=== PATIENT | female | born 1945 | race Caucasian/White ===

== ENCOUNTER 2021-12-07 15:11 | Outpatient (CLI) | payer MEDICARE | END 2021-12-07 15:12 | disposition home or self-care (01) | LOC: CSHRAD 15:11 | PROVIDERS: ATTEND Physician Assistant Medical | DX: R06.02 Shortness of breath (principal); K64.4 Residual hemorrhoidal skin tags; K74.60 Unspecified cirrhosis of liver | CPT/HCPCS: 71046 ==

== ENCOUNTER 2021-12-26 10:06 | Inpatient (IN) | payer MEDICARE ==
[2021-12-26 11:03] LABS: #Eosinphils 0.1 10x3/uL (0.0-0.5); #Monocytes 0.4 10x3/uL (0.0-1.1); #Neutrophils 3.6 10x3/uL (1.5-8.4); %Basophils 0.2 % (0.0-2.0); %Eosinophils 2.6 % (0.0-6.0); %Lymphocytes 11.4 % (18.0-47.0); %Monocytes 8.2 % (0.0-10.0); %Neutrophils 77.2 % (40.0-75.0); Hemoglobin 11.6 g/dL (12.0-15.5); Mean Corpuscular HGB CONC 32.8 g/dL (32.0-36.0); Mean Corpuscular Hemoglobin 29.1 pg (27.0-33.0); Mean Corpuscular Volume 88.7 fl (81.6-98.3); Mean Platelet Volume 12.9 fl (7.4-10.4); Platelet Count 64 10x3/uL (150-450); RBC Distribution Width 15.8 % (11.5-14.5); Red Blood Cell (RBC) Count 3.99 10x6/uL (3.90-5.03); White Blood Cell (WBC) Count 4.6 10x3/uL (3.5-10.5)
[2021-12-26 11:09] LABS: ALT (SGPT) 34 U/L (8-55); AST (SGOT) 38 U/L (5-34); Alkaline Phosphatase 107 U/L (40-110); Anion Gap 14 mmol/L (10-20); BUN (Urea Nitrogen) 34 mg/dL (9.8-20.1); Bilirubin, Total 1.4 mg/dL (0.2-1.2); Calc. Creatinine Clearance 0 mL/min (70-130); Calcium 8.6 mg/dL (7.8-10.44); Carbon Dioxide 25 mmol/L (23-31); Chloride 100 mmol/L (98-107); Estimated GFR 44; Globulin 4.2 g/dL (2.4-3.5); Glucose 193 mg/dL (83-110); Potassium 4.6 mmol/L (3.5-5.1); Protein, Total 7.2 g/dL (5.8-8.1); Sodium 134 mmol/L (136-145)
[2021-12-26] MEDS ORDERED: Ondansetron ODT 4 MG TAB PO PRN (12:52)
[2021-12-26] MEDS ORDERED: Ondansetron PF 4 MG/2 ML Vial IVP PRN (12:52)
[2021-12-26 13:38] VITALS: BMI 26.0
[2021-12-26 14:39] LABS: INR-International Normal Ratio 1.5; PTT 35.2 sec (22.0-33.0); Prothrombin Time 15.7 sec (9.5-12.1)
[2021-12-26] MEDS: Furosemide 40 MG/4 ML VIAL SLOW IVP SCH (14:47)
[2021-12-26] MEDS ORDERED: Benzonatate 100 MG CAP PO PRN (15:49)
[2021-12-26] MEDS: Ferrous Sulfate 325 MG TAB PO SCH (18:09)
[2021-12-26] MEDS: HYDROcodone/Acetaminophen 10/325 mg Tablet PO PRN ×2 (19:18→22:14)
[2021-12-26] MEDS: Zinc Sulfate 220 MG CAP PO SCH (22:14)
[2021-12-26] MEDS: Flecainide 50 MG TAB PO SCH (22:15)
[2021-12-27] MEDS: Levothyroxine Sodium 125 MCG TAB PO SCH (04:58)
[2021-12-27] MEDS: HYDROcodone/Acetaminophen 10/325 mg Tablet PO PRN ×3 (04:58→23:07)
[2021-12-27 05:10] LABS: #Eosinphils 0.1 10x3/uL (0.0-0.5); #Monocytes 0.4 10x3/uL (0.0-1.1); #Neutrophils 2.6 10x3/uL (1.5-8.4); %Basophils 0.3 % (0.0-2.0); %Eosinophils 2.3 % (0.0-6.0); %Lymphocytes 20.2 % (18.0-47.0); %Monocytes 10.7 % (0.0-10.0); %Neutrophils 66.2 % (40.0-75.0); Hemoglobin 10.8 g/dL (12.0-15.5); Mean Corpuscular HGB CONC 33.4 g/dL (32.0-36.0); Mean Corpuscular Hemoglobin 29.3 pg (27.0-33.0); Mean Corpuscular Volume 87.8 fl (81.6-98.3); Mean Platelet Volume 12.8 fl (7.4-10.4); Platelet Count 54 10x3/uL (150-450); RBC Distribution Width 15.7 % (11.5-14.5); Red Blood Cell (RBC) Count 3.68 10x6/uL (3.90-5.03); White Blood Cell (WBC) Count 3.9 10x3/uL (3.5-10.5)
[2021-12-27 05:13] LABS: Anion Gap 11 mmol/L (10-20); BUN (Urea Nitrogen) 35 mg/dL (9.8-20.1); Calc. Creatinine Clearance 34 mL/min (70-130); Calcium 8.5 mg/dL (7.8-10.44); Carbon Dioxide 26 mmol/L (23-31); Chloride 100 mmol/L (98-107); Estimated GFR 42; Glucose 88 mg/dL (83-110); Potassium 4.4 mmol/L (3.5-5.1); Sodium 133 mmol/L (136-145)
[2021-12-27] MEDS: Furosemide 40 MG/4 ML VIAL SLOW IVP SCH ×2 (06:09→14:38)
[2021-12-27] MEDS: Ubidecarenone 50 MG CAP PO SCH (09:00)
[2021-12-27] MEDS: Multivit, Therapeutic 1 TAB PO SCH (09:00)
[2021-12-27] MEDS: Potassium Chloride 20 MEQ TAB PO SCH (09:00)
[2021-12-27] MEDS: Saccharomyces boulardii 250 MG CAP PO SCH (09:01)
[2021-12-27] MEDS: Zinc Sulfate 220 MG CAP PO SCH ×2 (09:01→21:30)
[2021-12-27] MEDS: Nadolol 40 MG TAB PO SCH (09:02)
[2021-12-27] MEDS: Magnesium Oxide 250 MG TAB PO SCH (09:02)
[2021-12-27] MEDS: Loratadine 10 MG TAB PO SCH (09:02)
[2021-12-27] MEDS: Ferrous Sulfate 325 MG TAB PO SCH ×2 (09:02→17:40)
[2021-12-27] MEDS: Cholecalciferol 1,000 UNITS (25 MCG) TAB PO SCH (09:02)
[2021-12-27] MEDS: Flecainide 50 MG TAB PO SCH ×2 (09:02→21:30)
[2021-12-27] MEDS: Spironolactone 25 MG TAB PO SCH (09:02)
[2021-12-28 05:17] LABS: #Eosinphils 0.1 10x3/uL (0.0-0.5); #Monocytes 0.3 10x3/uL (0.0-1.1); %Basophils 0.3 % (0.0-2.0); %Lymphocytes 20.7 % (18.0-47.0); %Monocytes 9.9 % (0.0-10.0); %Neutrophils 65.8 % (40.0-75.0); Hemoglobin 9.8 g/dL (12.0-15.5); Mean Corpuscular HGB CONC 33.6 g/dL (32.0-36.0); Mean Corpuscular Hemoglobin 29.1 pg (27.0-33.0); Mean Corpuscular Volume 86.6 fl (81.6-98.3); Mean Platelet Volume 12.7 fl (7.4-10.4); Platelet Count 45 10x3/uL (150-450); RBC Distribution Width 15.5 % (11.5-14.5); Red Blood Cell (RBC) Count 3.37 10x6/uL (3.90-5.03)
[2021-12-28 05:38] LABS: Anion Gap 13 mmol/L (10-20); BUN (Urea Nitrogen) 33 mg/dL (9.8-20.1); Calc. Creatinine Clearance 41 mL/min (70-130); Calcium 8.3 mg/dL (7.8-10.44); Carbon Dioxide 25 mmol/L (23-31); Chloride 99 mmol/L (98-107); Estimated GFR 51; Glucose 80 mg/dL (83-110); Potassium 3.8 mmol/L (3.5-5.1); Sodium 133 mmol/L (136-145)
[2021-12-28] MEDS: HYDROcodone/Acetaminophen 10/325 mg Tablet PO PRN ×3 (06:01→23:29)
[2021-12-28] MEDS: Multivit, Therapeutic 1 TAB PO SCH (08:10)
[2021-12-28] MEDS: Loratadine 10 MG TAB PO SCH ×2 (08:10→08:11)
[2021-12-28] MEDS: Ferrous Sulfate 325 MG TAB PO SCH ×2 (08:12→16:56)
[2021-12-28] MEDS: Ubidecarenone 50 MG CAP PO SCH (08:12)
[2021-12-28] MEDS: Levothyroxine Sodium 125 MCG TAB PO SCH (08:13)
[2021-12-28] MEDS: Zinc Sulfate 220 MG CAP PO SCH ×2 (08:14→21:09)
[2021-12-28] MEDS: Saccharomyces boulardii 250 MG CAP PO SCH (08:14)
[2021-12-28] MEDS: Furosemide 40 MG/4 ML VIAL SLOW IVP SCH ×2 (08:15→13:41)
[2021-12-28] MEDS: Magnesium Oxide 250 MG TAB PO SCH (08:25)
[2021-12-28] MEDS: Potassium Chloride 20 MEQ TAB PO SCH (08:25)
[2021-12-28] MEDS: Cholecalciferol 1,000 UNITS (25 MCG) TAB PO SCH (08:25)
[2021-12-28] MEDS: Spironolactone 25 MG TAB PO SCH (10:53)
[2021-12-28] MEDS: Nadolol 40 MG TAB PO SCH (10:53)
[2021-12-28] MEDS: Flecainide 50 MG TAB PO SCH ×2 (10:53→21:09)
[2021-12-28] MEDS ORDERED: Sodium Bicarbonate 2.5 MEQ/5 ML VIAL ONE (12:27)
[2021-12-29 05:35] LABS: Anion Gap 11 mmol/L (10-20); BUN (Urea Nitrogen) 32 mg/dL (9.8-20.1); Calc. Creatinine Clearance 41 mL/min (70-130); Calcium 8.4 mg/dL (7.8-10.44); Carbon Dioxide 26 mmol/L (23-31); Chloride 100 mmol/L (98-107); Estimated GFR 52; Glucose 82 mg/dL (83-110); Potassium 4.3 mmol/L (3.5-5.1); Sodium 133 mmol/L (136-145)
[2021-12-29] MEDS: Furosemide 40 MG/4 ML VIAL SLOW IVP SCH (05:35)
[2021-12-29] MEDS: Levothyroxine Sodium 125 MCG TAB PO SCH (05:35)
[2021-12-29 05:37] LABS: #Eosinphils 0.1 10x3/uL (0.0-0.5); #Monocytes 0.3 10x3/uL (0.0-1.1); #Neutrophils 1.9 10x3/uL (1.5-8.4); %Basophils 0.3 % (0.0-2.0); %Eosinophils 3.4 % (0.0-6.0); %Lymphocytes 21.7 % (18.0-47.0); %Neutrophils 64.3 % (40.0-75.0); Hemoglobin 10.3 g/dL (12.0-15.5); Mean Corpuscular Hemoglobin 29.7 pg (27.0-33.0); Mean Corpuscular Volume 87.3 fl (81.6-98.3); Mean Platelet Volume 12.4 fl (7.4-10.4); Platelet Count 44 10x3/uL (150-450); RBC Distribution Width 15.2 % (11.5-14.5); Red Blood Cell (RBC) Count 3.47 10x6/uL (3.90-5.03); White Blood Cell (WBC) Count 2.9 10x3/uL (3.5-10.5)
[2021-12-29 06:47] LABS: Platelet Morphology Comment Appears Decreased; RBC Morphology Normal
[2021-12-29] MEDS: Nadolol 40 MG TAB PO SCH (08:22)
[2021-12-29] MEDS: Spironolactone 25 MG TAB PO SCH (08:23)
[2021-12-29] MEDS: Saccharomyces boulardii 250 MG CAP PO SCH (08:24)
[2021-12-29] MEDS: Zinc Sulfate 220 MG CAP PO SCH (08:25)
[2021-12-29] MEDS: Ubidecarenone 50 MG CAP PO SCH (08:25)
[2021-12-29] MEDS: Cholecalciferol 1,000 UNITS (25 MCG) TAB PO SCH (08:26)
[2021-12-29] MEDS: Flecainide 50 MG TAB PO SCH (08:26)
[2021-12-29] MEDS: Potassium Chloride 20 MEQ TAB PO SCH (08:26)
[2021-12-29] MEDS: Magnesium Oxide 250 MG TAB PO SCH (08:26)
[2021-12-29] MEDS: Ferrous Sulfate 325 MG TAB PO SCH (08:27)
[2021-12-29] MEDS: HYDROcodone/Acetaminophen 10/325 mg Tablet PO PRN (12:50)
[2021-12-29 13:04] VITALS: BP 134/61; TEMP 98
== END 2021-12-29 13:33 | disposition home or self-care (01) | DRG 433 ==
LOC: CSHERS 10:06 → CSHTELE 13:05
PROVIDERS: ADMIT Hospitalist; ATTEND Family Medicine
PROC: 0W9G3ZZ Drainage of Peritoneal Cavity, Percutaneous Approach (ICD-10-PCS; principal; 2021-12-28)
DX: K74.60 Unspecified cirrhosis of liver (principal); J90 Pleural effusion, not elsewhere classified; R18.8 Other ascites; N17.9 Acute kidney failure, unspecified; K75.81 Nonalcoholic steatohepatitis (NASH); I35.0 Nonrheumatic aortic (valve) stenosis; E03.9 Hypothyroidism, unspecified; Z66 Do not resuscitate; E78.00 Pure hypercholesterolemia, unspecified; M06.9 Rheumatoid arthritis, unspecified; I12.9 Hypertensive chronic kidney disease with stage 1 through stage 4 chronic kidney disease, or unspecified chronic kidney disease; M54.9 Dorsalgia, unspecified; G89.29 Other chronic pain; I48.91 Unspecified atrial fibrillation; N18.30 Chronic kidney disease, stage 3 unspecified; D69.6 Thrombocytopenia, unspecified; Z20.822 Contact with and (suspected) exposure to COVID-19; Z88.5 Allergy status to narcotic agent; Z79.899 Other long term (current) drug therapy; Z90.49 Acquired absence of other specified parts of digestive tract; Z98.890 Other specified postprocedural states; Z90.89 Acquired absence of other organs; Z87.440 Personal history of urinary (tract) infections; Z95.0 Presence of cardiac pacemaker; Z90.710 Acquired absence of both cervix and uterus; Z79.890 Hormone replacement therapy; Z82.3 Family history of stroke; Z82.49 Family history of ischemic heart disease and other diseases of the circulatory system
CPT/HCPCS: 36415; 36430; 49083; 71045; 76705; 80048; 80053; 83880; 84484; 85025; 85610; 85730; 86850; 86900; 86901; 93005; 94760; J1940; P9059; Q0162; U0003; U0005

== ENCOUNTER 2022-01-13 18:16 | Emergency (ER) | payer MEDICARE ==
[2022-01-13 20:08] LABS: Bilirubin Neg (Negative); Blood, Urine 150 (Negative); Glucose, Urine (Dipstick) Normal (Negative); Ketone, Urine Negative (Negative); Leukocyte 500 (Negative); Nitrite Positive (Negative); Protein, Urine (Dipstick) 100 mg/dl (Neg-Trace); Specific Gravity, Urine 1.015 (1.005-1.030); Urobilinogen Normal mg/dL (Less than 2)
[2022-01-13 20:10] LABS: Clarity Turbid (Clear)
[2022-01-13 20:20] LABS: Bacteria/HPF 3+ HPF (None Seen); Squamous Epithelial 0-3 HPF (0-3); WBC/HPF Greater Than 50 HPF (0-3)
== END 2022-01-13 20:30 | disposition home or self-care (01) ==
LOC: CSHERS 18:16
DX: N39.0 Urinary tract infection, site not specified (principal); R33.9 Retention of urine, unspecified; Z30.49 Encounter for surveillance of other contraceptives; E03.9 Hypothyroidism, unspecified; E78.00 Pure hypercholesterolemia, unspecified; I10 Essential (primary) hypertension; M10.9 Gout, unspecified
CPT/HCPCS: 51702; 81003; 81015; 87077; 87086; 87186

== ENCOUNTER 2022-04-06 10:44 | Inpatient (IN) | payer MEDICARE ==
[2022-04-06] MEDS ORDERED: Naloxone HCl 0.4 mg/ml Vial ONE ×2 (11:01→11:19)
[2022-04-06 11:33] LABS: Bilirubin Neg (Negative); Blood, Urine 250 (Negative); Clarity Slightly Cloudy (Clear); Glucose, Urine (Dipstick) Normal (Negative); Ketone, Urine Negative (Negative); Leukocyte 500 (Negative); Nitrite Negative (Negative); Protein, Urine (Dipstick) 100 mg/dl (Neg-Trace); Urobilinogen Normal mg/dL (Less than 2)
[2022-04-06 11:41] LABS: Amphetamine Not Detected (NotDetected); Barbiturates Screen Not Detected (NotDetected); Benzodiazepine Screen Not Detected (NotDetected); Cocaine Metabolite Screen Not Detected (NotDetected); Methadone Not Detected (NotDetected); Methamphetamine Not Detected (NotDetected); Opiate Screen Detected (NotDetected); Oxycodone Screen Not Detected (NotDetected); Phencyclidine (PCP) Not Detected (NotDetected); THC/Cannabinoid Screen Not Detected (NotDetected); Tricyclic Screen Not Detected (NotDetected)
[2022-04-06 11:46] LABS: Bacteria/HPF 2+ HPF (None Seen); WBC/HPF Greater Than 50 HPF (0-3)
[2022-04-06 11:55] LABS: #Eosinphils 0.1 10x3/uL (0.0-0.5); #Monocytes 0.5 10x3/uL (0.0-1.1); %Basophils 0.4 % (0.0-2.0); %Eosinophils 2.6 % (0.0-6.0); %Lymphocytes 12.9 % (18.0-47.0); %Neutrophils 73.7 % (40.0-75.0); Hemoglobin 12.8 g/dL (12.0-15.5); Mean Corpuscular HGB CONC 34.7 g/dL (32.0-36.0); Mean Corpuscular Hemoglobin 29.9 pg (27.0-33.0); Mean Corpuscular Volume 86.1 fl (81.6-98.3); Platelet Count 74 10x3/uL (150-450); RBC Distribution Width 17.2 % (11.5-14.5); Red Blood Cell (RBC) Count 4.32 10x6/uL (3.90-5.03); White Blood Cell (WBC) Count 5.6 10x3/uL (3.5-10.5)
[2022-04-06 12:05] LABS: ALT (SGPT) 38 U/L (8-55); AST (SGOT) 45 U/L (5-34); Albumin 3.4 g/dL (3.4-4.8); Alkaline Phosphatase 143 U/L (40-110); Anion Gap 15 mmol/L (10-20); BUN (Urea Nitrogen) 59 mg/dL (9.8-20.1); Bilirubin, Total 1.4 mg/dL (0.2-1.2); CK (CPK) 38 U/L (29-168); Calc. Creatinine Clearance 0 mL/min (70-130); Calcium 9.1 mg/dL (7.8-10.44); Carbon Dioxide 20 mmol/L (23-31); Chloride 101 mmol/L (98-107); Estimated GFR 35; Globulin 3.5 g/dL (2.4-3.5); Glucose 113 mg/dL (83-110); Potassium 4.3 mmol/L (3.5-5.1); Protein, Total 6.9 g/dL (5.8-8.1); Sodium 132 mmol/L (136-145)
[2022-04-06 12:06] LABS: Acetaminophen Less than 10.0 mcg/mL (10.0-30.0); Alcohol Less than 10 mg/dL (Less than 10); Salicylate Less than 8.0 mg/dL (15.0-30.0)
[2022-04-06 12:24] LABS: CKMB 1.1 ng/mL (0-6.6)
[2022-04-06] MEDS ORDERED: Iopamidol 300 61% 100 ML VIAL FS ONE (12:42)
[2022-04-06 12:44] LABS: INR-International Normal Ratio 1.3; PTT 34.7 sec (22.0-33.0)
[2022-04-06 12:47] LABS: Magnesium 2.1 mg/dL (1.6-2.6)
[2022-04-06] MEDS ORDERED: cefTRIAXone\\ROCEPHIN 1 GM VIAL ONE (13:22)
[2022-04-06] MEDS ORDERED: Diltiazem 125 MG/25 ML ONE (13:22)
[2022-04-06 14:24] LABS: Free T4 (Free Thyroxine) 1.15 ng/dL (0.70-1.48)
[2022-04-06] MEDS ORDERED: Senokot S 8.6-50 MG TAB PO PRN (14:35)
[2022-04-06] MEDS ORDERED: Ondansetron PF 4 MG/2 ML Vial IVP PRN (14:35)
[2022-04-06] MEDS ORDERED: Diltiazem 125 MG in Sodium Chloride 0.9% 100 ML IVPB SCH (14:45)
[2022-04-06] MEDS ORDERED: Sodium Chloride 0.9% 1,000 ML IV SCH (14:45)
[2022-04-06] MEDS ORDERED: Lidocaine 1% (PF) 30 ML VIAL ONE (17:12)
[2022-04-06 19:39] LABS: BF Color Yellow; Body Fluid Source Ascites Body Fluid; Clarity Clear (Clear); Tube # 1
[2022-04-06] MEDS: Acetaminophen 325 MG TAB PO PRN (21:11)
[2022-04-06 21:33] LABS: BF Segmented Neutrophils 25 %; Cell Count Non Hematic 73 %; Lymphocytes 2 %
[2022-04-07] MEDS: Acetaminophen 325 MG TAB PO PRN ×3 (02:03→14:09)
[2022-04-07 05:23] LABS: ALT (SGPT) 33 U/L (8-55); AST (SGOT) 36 U/L (5-34); Albumin 2.8 g/dL (3.4-4.8); Alkaline Phosphatase 99 U/L (40-110); Anion Gap 14 mmol/L (10-20); BUN (Urea Nitrogen) 52 mg/dL (9.8-20.1); Bilirubin, Total 1.3 mg/dL (0.2-1.2); Calc. Creatinine Clearance 0 mL/min (70-130); Calcium 8.6 mg/dL (7.8-10.44); Carbon Dioxide 18 mmol/L (23-31); Chloride 107 mmol/L (98-107); Estimated GFR 47; Glucose 87 mg/dL (83-110); Potassium 3.7 mmol/L (3.5-5.1); Protein, Total 5.8 g/dL (5.8-8.1); Sodium 135 mmol/L (136-145)
[2022-04-07 05:26] LABS: #Eosinphils 0.1 10x3/uL (0.0-0.5); #Monocytes 0.6 10x3/uL (0.0-1.1); #Neutrophils 3.8 10x3/uL (1.5-8.4); %Basophils 0.2 % (0.0-2.0); %Eosinophils 1.6 % (0.0-6.0); %Lymphocytes 12.6 % (18.0-47.0); %Monocytes 11.7 % (0.0-10.0); %Neutrophils 73.1 % (40.0-75.0); Hemoglobin 11.1 g/dL (12.0-15.5); Mean Corpuscular HGB CONC 34.7 g/dL (32.0-36.0); Mean Corpuscular Hemoglobin 30.2 pg (27.0-33.0); Mean Platelet Volume 12.3 fl (7.4-10.4); Platelet Count 65 10x3/uL (150-450); RBC Distribution Width 17.2 % (11.5-14.5); Red Blood Cell (RBC) Count 3.68 10x6/uL (3.90-5.03); White Blood Cell (WBC) Count 5.4 10x3/uL (3.5-10.5)
[2022-04-07 08:40] VITALS: BMI 25.0
[2022-04-07] MEDS: Levothyroxine Sodium 125 MCG TAB PO SCH (08:48)
[2022-04-07] MEDS: Saccharomyces boulardii 250 MG CAP PO SCH (08:48)
[2022-04-07] MEDS: cefTRIAXone\\ROCEPHIN 1 GM in Sodium Chloride 0.9% 100 ML IVPB SCH (08:49)
[2022-04-07] MEDS ORDERED: FLU VACC QS2022-23(65YR UP)/PF 240 MCG/0.7 ML SYRINGE IM ONE (10:00)
[2022-04-07] MEDS: HYDROcodone/Acetaminophen 5/325 mg Tablet PO PRN ×2 (14:50→20:44)
[2022-04-08] MEDS: HYDROcodone/Acetaminophen 5/325 mg Tablet PO PRN ×3 (04:56→20:45)
[2022-04-08 05:01] LABS: Anion Gap 12 mmol/L (10-20); BUN (Urea Nitrogen) 45 mg/dL (9.8-20.1); Calc. Creatinine Clearance 39 mL/min (70-130); Calcium 8.5 mg/dL (7.8-10.44); Carbon Dioxide 19 mmol/L (23-31); Chloride 104 mmol/L (98-107); Estimated GFR 51; Glucose 85 mg/dL (83-110); Potassium 3.5 mmol/L (3.5-5.1); Sodium 131 mmol/L (136-145)
[2022-04-08] MEDS: Levothyroxine Sodium 125 MCG TAB PO SCH (08:53)
[2022-04-08] MEDS: Saccharomyces boulardii 250 MG CAP PO SCH (08:53)
[2022-04-08] MEDS: cefTRIAXone\\ROCEPHIN 1 GM in Sodium Chloride 0.9% 100 ML IVPB SCH (09:01)
[2022-04-08] MEDS: Ciprofloxacin 500 MG TAB PO SCH (20:46)
[2022-04-09] MEDS: HYDROcodone/Acetaminophen 5/325 mg Tablet PO PRN ×3 (04:56→20:00)
[2022-04-09] MEDS: Ciprofloxacin 500 MG TAB PO SCH ×2 (05:00→20:01)
[2022-04-09] MEDS: Levothyroxine Sodium 125 MCG TAB PO SCH (08:37)
[2022-04-09] MEDS: Saccharomyces boulardii 250 MG CAP PO SCH (08:38)
[2022-04-09] MEDS ORDERED: Furosemide 40 MG/4 ML VIAL SLOW IVP SCH (11:00)
[2022-04-09] MEDS: Furosemide 40 MG/4 ML VIAL SLOW IVP SCH (14:32)
[2022-04-09] MEDS: Ferrous Sulfate 325 MG TAB PO SCH (20:01)
[2022-04-09] MEDS: Flecainide 50 MG TAB PO SCH (20:02)
[2022-04-10] MEDS: HYDROcodone/Acetaminophen 5/325 mg Tablet PO PRN ×3 (04:05→21:17)
[2022-04-10 05:19] LABS: #Eosinphils 0.2 10x3/uL (0.0-0.5); #Monocytes 0.5 10x3/uL (0.0-1.1); %Basophils 0.5 % (0.0-2.0); %Eosinophils 3.6 % (0.0-6.0); %Lymphocytes 12.1 % (18.0-47.0); %Monocytes 10.9 % (0.0-10.0); %Neutrophils 72.4 % (40.0-75.0); Hemoglobin 10.1 g/dL (12.0-15.5); Mean Corpuscular HGB CONC 34.4 g/dL (32.0-36.0); Mean Corpuscular Hemoglobin 29.9 pg (27.0-33.0); Mean Platelet Volume 11.9 fl (7.4-10.4); Platelet Count 49 10x3/uL (150-450); RBC Distribution Width 16.4 % (11.5-14.5); Red Blood Cell (RBC) Count 3.38 10x6/uL (3.90-5.03); White Blood Cell (WBC) Count 4.1 10x3/uL (3.5-10.5)
[2022-04-10 05:27] LABS: ALT (SGPT) 30 U/L (8-55); AST (SGOT) 29 U/L (5-34); Albumin 2.8 g/dL (3.4-4.8); Alkaline Phosphatase 112 U/L (40-110); Anion Gap 14 mmol/L (10-20); BUN (Urea Nitrogen) 37 mg/dL (9.8-20.1); Bilirubin, Total 0.8 mg/dL (0.2-1.2); Calc. Creatinine Clearance 37 mL/min (70-130); Carbon Dioxide 17 mmol/L (23-31); Chloride 99 mmol/L (98-107); Estimated GFR 49; Globulin 2.9 g/dL (2.4-3.5); Glucose 96 mg/dL (83-110); Potassium 3.4 mmol/L (3.5-5.1); Protein, Total 5.7 g/dL (5.8-8.1); Sodium 127 mmol/L (136-145)
[2022-04-10] MEDS ORDERED: Ciprofloxacin 500 MG TAB PO SCH (06:00)
[2022-04-10] MEDS: Furosemide 40 MG/4 ML VIAL SLOW IVP SCH ×2 (06:25→13:05)
[2022-04-10] MEDS: Levothyroxine Sodium 125 MCG TAB PO SCH (06:25)
[2022-04-10] MEDS ORDERED: Spironolactone 25 MG TAB PO SCH (08:00)
[2022-04-10] MEDS ORDERED: Nadolol 40 MG TAB PO SCH (09:00)
[2022-04-10] MEDS: Saccharomyces boulardii 250 MG CAP PO SCH (09:09)
[2022-04-10] MEDS: Ferrous Sulfate 325 MG TAB PO SCH ×2 (09:10→21:18)
[2022-04-10] MEDS: Ubidecarenone 50 MG CAP PO SCH (09:10)
[2022-04-10] MEDS: Magnesium Oxide 250 MG TAB PO SCH (09:10)
[2022-04-10] MEDS: Loratadine 10 MG TAB PO SCH (09:10)
[2022-04-10] MEDS: Potassium Chloride 20 MEQ TAB PO SCH (09:10)
[2022-04-10] MEDS: Flecainide 50 MG TAB PO SCH ×2 (09:11→21:21)
[2022-04-10] MEDS: Albumin 25% 25 GM/100 ML BOT IVPB SCH (18:09)
[2022-04-11] MEDS: Albumin 25% 25 GM/100 ML BOT IVPB SCH ×3 (00:15→11:45)
[2022-04-11] MEDS: HYDROcodone/Acetaminophen 5/325 mg Tablet PO PRN ×3 (04:03→20:12)
[2022-04-11 05:37] LABS: ALT (SGPT) 27 U/L (8-55); AST (SGOT) 33 U/L (5-34); Albumin 3.4 g/dL (3.4-4.8); Alkaline Phosphatase 98 U/L (40-110); Anion Gap 14 mmol/L (10-20); BUN (Urea Nitrogen) 36 mg/dL (9.8-20.1); Bilirubin, Total 1.2 mg/dL (0.2-1.2); Calc. Creatinine Clearance 34 mL/min (70-130); Calcium 8.1 mg/dL (7.8-10.44); Carbon Dioxide 17 mmol/L (23-31); Chloride 99 mmol/L (98-107); Estimated GFR 44; Globulin 2.5 g/dL (2.4-3.5); Glucose 85 mg/dL (83-110); Potassium 3.4 mmol/L (3.5-5.1); Protein, Total 5.9 g/dL (5.8-8.1); Sodium 127 mmol/L (136-145)
[2022-04-11] MEDS: Furosemide 40 MG/4 ML VIAL SLOW IVP SCH ×2 (06:33→13:06)
[2022-04-11] MEDS: Ciprofloxacin 500 MG TAB PO SCH (07:33)
[2022-04-11] MEDS ORDERED: Sodium Bicarbonate 2.5 MEQ/5 ML VIAL ONE (08:29)
[2022-04-11] MEDS ORDERED: Lidocaine 1% PF 5 ML VIAL ONE (08:29)
[2022-04-11] MEDS: Ferrous Sulfate 325 MG TAB PO SCH ×2 (08:43→20:11)
[2022-04-11] MEDS: Magnesium Oxide 250 MG TAB PO SCH (08:43)
[2022-04-11] MEDS: Potassium Chloride 20 MEQ TAB PO SCH (08:43)
[2022-04-11] MEDS: Saccharomyces boulardii 250 MG CAP PO SCH (08:43)
[2022-04-11] MEDS: Levothyroxine Sodium 125 MCG TAB PO SCH (08:43)
[2022-04-11] MEDS: Loratadine 10 MG TAB PO SCH (08:43)
[2022-04-11] MEDS: Flecainide 50 MG TAB PO SCH ×2 (08:43→20:11)
[2022-04-11] MEDS: Ubidecarenone 50 MG CAP PO SCH (08:43)
[2022-04-12] MEDS: HYDROcodone/Acetaminophen 5/325 mg Tablet PO PRN ×4 (01:57→20:17)
[2022-04-12] MEDS: Furosemide 40 MG/4 ML VIAL SLOW IVP SCH ×2 (05:45→14:19)
[2022-04-12] MEDS: Saccharomyces boulardii 250 MG CAP PO SCH (08:46)
[2022-04-12] MEDS: Potassium Chloride 20 MEQ TAB PO SCH (08:46)
[2022-04-12] MEDS: Levothyroxine Sodium 125 MCG TAB PO SCH (08:46)
[2022-04-12] MEDS: Ubidecarenone 50 MG CAP PO SCH (08:46)
[2022-04-12] MEDS: Loratadine 10 MG TAB PO SCH (08:46)
[2022-04-12] MEDS: Ferrous Sulfate 325 MG TAB PO SCH ×2 (08:46→20:17)
[2022-04-12] MEDS: Famotidine 20 MG TAB PO SCH (08:46)
[2022-04-12] MEDS: Magnesium Oxide 250 MG TAB PO SCH (08:46)
[2022-04-12] MEDS: Flecainide 50 MG TAB PO SCH ×2 (08:47→20:16)
[2022-04-13] MEDS: HYDROcodone/Acetaminophen 5/325 mg Tablet PO PRN ×2 (02:06→09:46)
[2022-04-13] MEDS: Furosemide 40 MG/4 ML VIAL SLOW IVP SCH (05:41)
[2022-04-13 05:52] LABS: Anion Gap 14 mmol/L (10-20); BUN (Urea Nitrogen) 40 mg/dL (9.8-20.1); Calc. Creatinine Clearance 31 mL/min (70-130); Calcium 8.6 mg/dL (7.8-10.44); Carbon Dioxide 18 mmol/L (23-31); Chloride 98 mmol/L (98-107); Estimated GFR 39; Glucose 86 mg/dL (83-110); Potassium 4.2 mmol/L (3.5-5.1); Sodium 126 mmol/L (136-145)
[2022-04-13 05:53] LABS: #Eosinphils 0.1 10x3/uL (0.0-0.5); #Monocytes 0.5 10x3/uL (0.0-1.1); #Neutrophils 3.2 10x3/uL (1.5-8.4); %Basophils 0.5 % (0.0-2.0); %Eosinophils 2.7 % (0.0-6.0); %Monocytes 10.3 % (0.0-10.0); %Neutrophils 72.6 % (40.0-75.0); Hemoglobin 10.4 g/dL (12.0-15.5); Mean Corpuscular HGB CONC 35.1 g/dL (32.0-36.0); Mean Corpuscular Hemoglobin 30.3 pg (27.0-33.0); Mean Corpuscular Volume 86.3 fl (81.6-98.3); Mean Platelet Volume 13.1 fl (7.4-10.4); Platelet Count 36 10x3/uL (150-450); RBC Distribution Width 16.2 % (11.5-14.5); Red Blood Cell (RBC) Count 3.43 10x6/uL (3.90-5.03); White Blood Cell (WBC) Count 4.4 10x3/uL (3.5-10.5)
[2022-04-13] MEDS: Loratadine 10 MG TAB PO SCH (08:54)
[2022-04-13] MEDS: Ferrous Sulfate 325 MG TAB PO SCH (08:55)
[2022-04-13] MEDS: Famotidine 20 MG TAB PO SCH (08:55)
[2022-04-13] MEDS: Potassium Chloride 20 MEQ TAB PO SCH (08:55)
[2022-04-13] MEDS: Saccharomyces boulardii 250 MG CAP PO SCH (08:56)
[2022-04-13] MEDS: Levothyroxine Sodium 125 MCG TAB PO SCH (08:56)
[2022-04-13] MEDS: Magnesium Oxide 250 MG TAB PO SCH (08:56)
[2022-04-13] MEDS: Ubidecarenone 50 MG CAP PO SCH (08:56)
[2022-04-13] MEDS: Flecainide 50 MG TAB PO SCH (08:56)
[2022-04-13 11:52] VITALS: BP 117/58; TEMP 98.6
[2022-04-13] MEDS ORDERED: Gabapentin 300 MG CAP PO SCH (15:00)
[2022-04-14] MEDS ORDERED: Levothyroxine Sodium 125 MCG TAB PO SCH (06:00)
== END 2022-04-13 16:26 | DRG 698 ==
LOC: CSHERS 10:44 → CSHTELE 16:54
PROVIDERS: ADMIT Family Medicine; ATTEND Family Medicine
PROC: 0W9G3ZZ Drainage of Peritoneal Cavity, Percutaneous Approach (ICD-10-PCS; principal; 2022-04-11)
DX: T83.511A Infection and inflammatory reaction due to indwelling urethral catheter, initial encounter (principal); G92.8 Other toxic encephalopathy; R18.8 Other ascites; E87.1 Hypo-osmolality and hyponatremia; Y84.6 Urinary catheterization as the cause of abnormal reaction of the patient, or of later complication, without mention of misadventure at the time of the procedure; Z20.822 Contact with and (suspected) exposure to COVID-19; K75.81 Nonalcoholic steatohepatitis (NASH); E78.5 Hyperlipidemia, unspecified; I48.0 Paroxysmal atrial fibrillation; T39.95XA Adverse effect of unspecified nonopioid analgesic, antipyretic and antirheumatic, initial encounter; M06.9 Rheumatoid arthritis, unspecified; M10.9 Gout, unspecified; E03.9 Hypothyroidism, unspecified; G62.9 Polyneuropathy, unspecified; G89.4 Chronic pain syndrome; I35.0 Nonrheumatic aortic (valve) stenosis; N18.30 Chronic kidney disease, stage 3 unspecified; D69.6 Thrombocytopenia, unspecified; I12.9 Hypertensive chronic kidney disease with stage 1 through stage 4 chronic kidney disease, or unspecified chronic kidney disease; Z95.0 Presence of cardiac pacemaker; Z88.6 Allergy status to analgesic agent; Z87.440 Personal history of urinary (tract) infections; Z79.890 Hormone replacement therapy; Z79.899 Other long term (current) drug therapy; Z90.49 Acquired absence of other specified parts of digestive tract; Z90.710 Acquired absence of both cervix and uterus; Z90.721 Acquired absence of ovaries, unilateral
CPT/HCPCS: 36415; 36416; 49083; 70450; 71045; 72125; 72170; 74177; 80048; 80053; 80306; 80307; 81003; 81015; 82140; 82550; 82553; 83605; 83735; 84439; 84443; 84481; 84484; 85025; 85610; 85730; 87040; 87070; 87077; 87086; 87186; 87205; 89051; 93005; 94760; 96374; 96375; J0696; J1940; J2001; J2310; J2405; J3490; J7050; P9047; Q9967

== ENCOUNTER 2022-04-24 07:31 | Day surgery (SDC) | payer MEDICARE ==
[2022-04-24] MEDS ORDERED: Lidocaine 1% PF 5 ML VIAL ONE (08:06)
[2022-04-24] MEDS ORDERED: Sodium Bicarbonate 2.5 MEQ/5 ML VIAL ONE (08:06)
[2022-04-24] MEDS ORDERED: Albumin 25% 100 ML ONE (08:37)
[2022-04-24 12:11] VITALS: BP 125/59; TEMP 97
== END 2022-04-24 09:20 ==
LOC: CSHULT 07:31
PROVIDERS: ATTEND Physician Assistant Medical
PROC: 0W9G3ZZ Drainage of Peritoneal Cavity, Percutaneous Approach (ICD-10-PCS; principal; 2022-04-24)
DX: R18.8 Other ascites (principal); K74.60 Unspecified cirrhosis of liver
CPT/HCPCS: 49083; P9047

== ENCOUNTER 2022-04-26 10:59 | Inpatient (IN) | payer MEDICARE ==
[2022-04-26 12:05] LABS: ALT (SGPT) 41 U/L (8-55); AST (SGOT) 47 U/L (5-34); Albumin 3.4 g/dL (3.4-4.8); Alkaline Phosphatase 159 U/L (40-110); Anion Gap 12 mmol/L (10-20); BUN (Urea Nitrogen) 41 mg/dL (9.8-20.1); Bilirubin, Total 0.9 mg/dL (0.2-1.2); Calc. Creatinine Clearance 0 mL/min (70-130); Calcium 8.7 mg/dL (7.8-10.44); Carbon Dioxide 18 mmol/L (23-31); Chloride 95 mmol/L (98-107); Estimated GFR 33; Globulin 3.5 g/dL (2.4-3.5); Glucose 109 mg/dL (83-110); Magnesium 2.1 mg/dL (1.6-2.6); Potassium 4.7 mmol/L (3.5-5.1); Protein, Total 6.9 g/dL (5.8-8.1); Sodium 120 mmol/L (136-145)
[2022-04-26 12:07] LABS: #Eosinphils 0.2 10x3/uL (0.0-0.5); #Monocytes 0.6 10x3/uL (0.0-1.1); #Neutrophils 3.3 10x3/uL (1.5-8.4); %Basophils 0.4 % (0.0-2.0); %Eosinophils 4.9 % (0.0-6.0); %Lymphocytes 10.9 % (18.0-47.0); %Monocytes 12.4 % (0.0-10.0); %Neutrophils 70.8 % (40.0-75.0); Mean Corpuscular HGB CONC 34.8 g/dL (32.0-36.0); Mean Corpuscular Hemoglobin 29.8 pg (27.0-33.0); Mean Corpuscular Volume 85.6 fl (81.6-98.3); Platelet Count 71 10x3/uL (150-450); RBC Distribution Width 15.3 % (11.5-14.5); Red Blood Cell (RBC) Count 4.03 10x6/uL (3.90-5.03); White Blood Cell (WBC) Count 4.7 10x3/uL (3.5-10.5)
[2022-04-26] MEDS ORDERED: HYDROcodone/Acetaminophen 5/325 mg Tablet ONE (12:30)
[2022-04-26 14:45] LABS: SARS-CoV-2 NAA Rapid Test DETECTED (NotDetected)
[2022-04-26 15:31] LABS: Bilirubin Neg (Negative); Blood, Urine 25 (Negative); Clarity Cloudy (Clear); Glucose, Urine (Dipstick) Normal (Negative); Ketone, Urine Negative (Negative); Leukocyte 500 (Negative); Nitrite Negative (Negative); Protein, Urine (Dipstick) 30 mg/dl (Neg-Trace); Specific Gravity, Urine 1.015 (1.005-1.030); Urobilinogen Normal mg/dL (Less than 2)
[2022-04-26 15:51] LABS: Bacteria/HPF 2+ HPF (None Seen); RBC/HPF 0-3 HPF (0-3); Renal Epithelial 0-3 HPF (None Seen); Squamous Epithelial 0-3 HPF (0-3); WBC/HPF Greater than 50 HPF (0-3); Yeast-Budding 1+ HPF (None Seen); Yeast-Hyphae 2+ HPF (None Seen)
[2022-04-26] MEDS ORDERED: Acetaminophen 650 MG Suppository PR PRN (16:16)
[2022-04-26] MEDS ORDERED: Acetaminophen 325 MG TAB PO PRN (16:16)
[2022-04-26] MEDS ORDERED: Sodium Chloride 0.9% 1,000 ML IV SCH (16:30)
[2022-04-26 17:26] LABS: Sodium 122 mmol/L (136-145)
[2022-04-26 20:16] LABS: Sodium, Urine Less than 20 mmol/L (Not Available); Urea Nitrogen, Random Urine 414 mg/dl
[2022-04-26] MEDS: HYDROcodone/Acetaminophen 10/325 mg Tablet PO PRN (23:01)
[2022-04-26 23:46] LABS: Sodium 123 mmol/L (136-145)
[2022-04-27 01:59] VITALS: BMI 29.2
[2022-04-27 05:26] LABS: #Eosinphils 0.2 10x3/uL (0.0-0.5); #Monocytes 0.4 10x3/uL (0.0-1.1); #Neutrophils 2.4 10x3/uL (1.5-8.4); %Basophils 0.3 % (0.0-2.0); %Eosinophils 4.4 % (0.0-6.0); %Lymphocytes 14.1 % (18.0-47.0); %Monocytes 11.4 % (0.0-10.0); %Neutrophils 69.2 % (40.0-75.0); Hemoglobin 11.1 g/dL (12.0-15.5); Mean Corpuscular Hemoglobin 30.2 pg (27.0-33.0); Mean Corpuscular Volume 86.1 fl (81.6-98.3); Mean Platelet Volume 11.7 fl (7.4-10.4); Platelet Count 51 10x3/uL (150-450); RBC Distribution Width 15.2 % (11.5-14.5); Red Blood Cell (RBC) Count 3.68 10x6/uL (3.90-5.03); White Blood Cell (WBC) Count 3.4 10x3/uL (3.5-10.5)
[2022-04-27 05:30] LABS: Anion Gap 12 mmol/L (10-20); BUN (Urea Nitrogen) 45 mg/dL (9.8-20.1); Calc. Creatinine Clearance 37 mL/min (70-130); Calcium 8.5 mg/dL (7.8-10.44); Carbon Dioxide 18 mmol/L (23-31); Chloride 98 mmol/L (98-107); Estimated GFR 39; Glucose 79 mg/dL (83-110); Sodium 123 mmol/L (136-145)
[2022-04-27] MEDS: HYDROcodone/Acetaminophen 10/325 mg Tablet PO PRN (06:30)
[2022-04-27] MEDS ORDERED: Levothyroxine Sodium 125 MCG TAB PO SCH (09:00)
[2022-04-27] MEDS: Zinc Sulfate 220 MG CAP PO SCH ×2 (09:14→21:07)
[2022-04-27] MEDS: Loratadine 10 MG TAB PO SCH (09:14)
[2022-04-27] MEDS: Furosemide 20 MG TAB PO SCH (09:15)
[2022-04-27] MEDS: Gabapentin 300 MG CAP PO SCH ×2 (09:15→21:07)
[2022-04-27] MEDS: Flecainide 50 MG TAB PO SCH ×2 (09:15→21:07)
[2022-04-27] MEDS: cefTRIAXone\\ROCEPHIN 1 GM in Sodium Chloride 0.9% 100 ML IVPB SCH (10:51)
[2022-04-27 11:52] LABS: Sodium 121 mmol/L (136-145)
[2022-04-27] MEDS: Sodium Chloride 1 GM TAB PO SCH ×2 (14:14→21:07)
[2022-04-27] MEDS: HYDROcodone/Acetaminophen 5/325 mg Tablet PO PRN (15:58)
[2022-04-27 16:40] LABS: Sodium 125 mmol/L (136-145)
[2022-04-27 22:42] LABS: Sodium 125 mmol/L (136-145)
[2022-04-28 05:09] LABS: #Eosinphils 0.2 10x3/uL (0.0-0.5); #Monocytes 0.5 10x3/uL (0.0-1.1); #Neutrophils 2.7 10x3/uL (1.5-8.4); %Basophils 0.3 % (0.0-2.0); %Lymphocytes 11.9 % (18.0-47.0); %Monocytes 12.9 % (0.0-10.0); %Neutrophils 70.4 % (40.0-75.0); Hemoglobin 10.7 g/dL (12.0-15.5); Mean Corpuscular HGB CONC 34.9 g/dL (32.0-36.0); Mean Corpuscular Hemoglobin 30.2 pg (27.0-33.0); Mean Corpuscular Volume 86.7 fl (81.6-98.3); Mean Platelet Volume 11.9 fl (7.4-10.4); Platelet Count 52 10x3/uL (150-450); RBC Distribution Width 15.1 % (11.5-14.5); Red Blood Cell (RBC) Count 3.54 10x6/uL (3.90-5.03); White Blood Cell (WBC) Count 3.8 10x3/uL (3.5-10.5)
[2022-04-28 05:24] LABS: Anion Gap 12 mmol/L (10-20); BUN (Urea Nitrogen) 46 mg/dL (9.8-20.1); Calc. Creatinine Clearance 41 mL/min (70-130); Calcium 8.3 mg/dL (7.8-10.44); Carbon Dioxide 16 mmol/L (23-31); Chloride 101 mmol/L (98-107); Estimated GFR 46; Glucose 85 mg/dL (83-110); Potassium 4.8 mmol/L (3.5-5.1); Sodium 124 mmol/L (136-145)
[2022-04-28] MEDS: Levothyroxine Sodium 125 MCG TAB PO SCH (06:02)
[2022-04-28] MEDS: HYDROcodone/Acetaminophen 5/325 mg Tablet PO PRN ×3 (08:51→17:19)
[2022-04-28] MEDS: Loratadine 10 MG TAB PO SCH (08:52)
[2022-04-28] MEDS: Zinc Sulfate 220 MG CAP PO SCH ×2 (08:52→20:19)
[2022-04-28] MEDS: Gabapentin 300 MG CAP PO SCH ×2 (08:55→20:19)
[2022-04-28] MEDS: Sodium Chloride 1 GM TAB PO SCH ×3 (08:56→20:19)
[2022-04-28] MEDS: Flecainide 50 MG TAB PO SCH ×2 (08:56→20:19)
[2022-04-28] MEDS: Furosemide 20 MG TAB PO SCH (08:56)
[2022-04-28] MEDS: cefTRIAXone\\ROCEPHIN 1 GM in Sodium Chloride 0.9% 100 ML IVPB SCH (15:47)
[2022-04-28] MEDS: Albumin 25% 25 GM/100 ML BOT IVPB SCH ×2 (15:47→19:02)
[2022-04-28] MEDS: Sodium Bicarbonate Tab 325 MG TAB PO SCH ×2 (15:50→20:19)
[2022-04-29] MEDS: HYDROcodone/Acetaminophen 5/325 mg Tablet PO PRN ×2 (01:12→08:48)
[2022-04-29] MEDS: Albumin 25% 25 GM/100 ML BOT IVPB SCH ×2 (01:13→05:58)
[2022-04-29 04:09] LABS: #Eosinphils 0.1 10x3/uL (0.0-0.5); #Monocytes 0.3 10x3/uL (0.0-1.1); #Neutrophils 1.6 10x3/uL (1.5-8.4); %Basophils 0.4 % (0.0-2.0); %Eosinophils 3.4 % (0.0-6.0); %Lymphocytes 13.3 % (18.0-47.0); %Monocytes 13.7 % (0.0-10.0); %Neutrophils 69.2 % (40.0-75.0); Hemoglobin 8.8 g/dL (12.0-15.5); Mean Corpuscular HGB CONC 35.6 g/dL (32.0-36.0); Mean Corpuscular Hemoglobin 30.7 pg (27.0-33.0); Mean Corpuscular Volume 86.2 fl (81.6-98.3); Mean Platelet Volume 11.7 fl (7.4-10.4); Platelet Count 41 10x3/uL (150-450); RBC Distribution Width 15.3 % (11.5-14.5); White Blood Cell (WBC) Count 2.4 10x3/uL (3.5-10.5)
[2022-04-29 04:19] LABS: Anion Gap 13 mmol/L (10-20); BUN (Urea Nitrogen) 42 mg/dL (9.8-20.1); Calc. Creatinine Clearance 43 mL/min (70-130); Calcium 8.6 mg/dL (7.8-10.44); Carbon Dioxide 18 mmol/L (23-31); Chloride 103 mmol/L (98-107); Estimated GFR 47; Glucose 102 mg/dL (83-110); Potassium 4.1 mmol/L (3.5-5.1); Sodium 130 mmol/L (136-145)
[2022-04-29] MEDS: Levothyroxine Sodium 125 MCG TAB PO SCH (05:58)
[2022-04-29] MEDS: Gabapentin 300 MG CAP PO SCH (08:47)
[2022-04-29] MEDS: Sodium Bicarbonate Tab 325 MG TAB PO SCH (08:48)
[2022-04-29] MEDS: Loratadine 10 MG TAB PO SCH (08:48)
[2022-04-29] MEDS: Flecainide 50 MG TAB PO SCH (08:48)
[2022-04-29] MEDS: Furosemide 20 MG TAB PO SCH (08:50)
[2022-04-29] MEDS: Zinc Sulfate 220 MG CAP PO SCH (08:50)
[2022-04-29] MEDS: Sodium Chloride 1 GM TAB PO SCH (11:17)
[2022-04-29 12:10] VITALS: BP 113/51; TEMP 98.4
== END 2022-04-29 11:50 | disposition home or self-care (01) | DRG 432 ==
LOC: CSHERS 10:59 → INTOOBSV 19:47 → CSHERHOLD 19:47 → CSHTELE 21:23 → OBSVTOIN 04-28 08:50
PROVIDERS: ADMIT Student in an Organized Health Care Education/Training Program; ATTEND Internal Medicine
PROC: 30233J1 Transfusion of Nonautologous Serum Albumin into Peripheral Vein, Percutaneous Approach (ICD-10-PCS; principal; 2022-04-28)
PROC: 8E0ZXY6 Isolation (ICD-10-PCS; 2022-04-28)
DX: K74.60 Unspecified cirrhosis of liver (principal); U07.1 COVID-19; E87.1 Hypo-osmolality and hyponatremia; J90 Pleural effusion, not elsewhere classified; N39.0 Urinary tract infection, site not specified; K75.81 Nonalcoholic steatohepatitis (NASH); E78.5 Hyperlipidemia, unspecified; I48.0 Paroxysmal atrial fibrillation; M10.9 Gout, unspecified; M06.9 Rheumatoid arthritis, unspecified; I35.0 Nonrheumatic aortic (valve) stenosis; D69.6 Thrombocytopenia, unspecified; E03.9 Hypothyroidism, unspecified; N32.0 Bladder-neck obstruction; N18.9 Chronic kidney disease, unspecified; I12.9 Hypertensive chronic kidney disease with stage 1 through stage 4 chronic kidney disease, or unspecified chronic kidney disease; Z88.5 Allergy status to narcotic agent; Z79.899 Other long term (current) drug therapy; Z95.0 Presence of cardiac pacemaker; Z79.890 Hormone replacement therapy; Z90.49 Acquired absence of other specified parts of digestive tract; Z90.710 Acquired absence of both cervix and uterus; Z90.722 Acquired absence of ovaries, bilateral
CPT/HCPCS: 36415; 80048; 81003; 81015; 83735; 83880; 83930; 83935; 84300; 84540; 84560; 85025; 93005; 94760; 96374; G0378; J0696; J3490; J7050; P9047; U0002

== ENCOUNTER 2022-05-01 08:20 | Day surgery (SDC) | payer MEDICARE ==
[2022-05-01 09:05] VITALS: BP 102/49; TEMP 97.1
[2022-05-01] MEDS ORDERED: Lidocaine 1% PF 5 ML VIAL ONE (09:17)
[2022-05-01] MEDS ORDERED: Sodium Bicarbonate 2.5 MEQ/5 ML VIAL ONE (09:17)
[2022-05-01] MEDS ORDERED: Albumin 25% 100 ML ONE (10:11)
== END 2022-05-01 11:25 | disposition home or self-care (01) ==
LOC: CSHULT 08:20
PROVIDERS: ATTEND Physician Assistant Medical
PROC: 0W9G3ZZ Drainage of Peritoneal Cavity, Percutaneous Approach (ICD-10-PCS; principal; 2022-05-01)
DX: R18.8 Other ascites (principal); E87.1 Hypo-osmolality and hyponatremia; J90 Pleural effusion, not elsewhere classified; E78.5 Hyperlipidemia, unspecified; I48.0 Paroxysmal atrial fibrillation; E03.9 Hypothyroidism, unspecified; I10 Essential (primary) hypertension; M06.9 Rheumatoid arthritis, unspecified; M10.9 Gout, unspecified; N32.0 Bladder-neck obstruction; J45.909 Unspecified asthma, uncomplicated; Z86.73 Personal history of transient ischemic attack (TIA), and cerebral infarction without residual deficits; Z79.899 Other long term (current) drug therapy; Z88.5 Allergy status to narcotic agent
CPT/HCPCS: 49083; P9047

== ENCOUNTER 2022-05-08 07:38 | Day surgery (SDC) | payer MEDICARE ==
[2022-05-08] MEDS ORDERED: Lidocaine 1% PF 5 ML VIAL ONE (08:07)
[2022-05-08] MEDS ORDERED: Sodium Bicarbonate 2.5 MEQ/5 ML VIAL ONE (08:07)
[2022-05-08 09:00] VITALS: BP 111/55; BMI 25.5
[2022-05-08] MEDS ORDERED: FLU VACC QS2022-23(65YR UP)/PF 240 MCG/0.7 ML SYRINGE IM ONE (09:15)
== END 2022-05-08 09:15 ==
LOC: CSHULT 07:38
PROVIDERS: ATTEND Physician Assistant Medical
PROC: 0W9G3ZZ Drainage of Peritoneal Cavity, Percutaneous Approach (ICD-10-PCS; principal; 2022-05-08)
DX: R18.8 Other ascites (principal)
CPT/HCPCS: 49083

== ENCOUNTER → 2022-05-18 | Day surgery (SDC) | payer MEDICARE ==
[2022-05-18 13:22] VITALS: BP 117/56; TEMP 98.4
[2022-05-18 13:40] LABS: INR-International Normal Ratio 1.3; Prothrombin Time 14.2 sec (9.5-12.1)
== END ==
LOC: CSHULT 12:42
PROVIDERS: ATTEND Physician Assistant Medical
PROC: 0W9G3ZZ Drainage of Peritoneal Cavity, Percutaneous Approach (ICD-10-PCS; principal; 2022-05-18)
DX: R18.8 Other ascites (principal)
CPT/HCPCS: 49083; 85610

== ENCOUNTER 2022-05-23 03:19 | Inpatient (IN) | payer MEDICARE ==
[2022-05-23 04:02] LABS: #Eosinphils 0.1 10x3/uL (0.0-0.5); #Monocytes 0.5 10x3/uL (0.0-1.1); #Neutrophils 3.4 10x3/uL (1.5-8.4); %Basophils 0.5 % (0.0-2.0); %Eosinophils 2.5 % (0.0-6.0); %Lymphocytes 8.1 % (18.0-47.0); %Monocytes 11.3 % (0.0-10.0); %Neutrophils 76.9 % (40.0-75.0); Hemoglobin 11.5 g/dL (12.0-15.5); Mean Corpuscular HGB CONC 35.1 g/dL (32.0-36.0); Mean Corpuscular Hemoglobin 29.4 pg (27.0-33.0); Mean Corpuscular Volume 83.9 fl (81.6-98.3); Mean Platelet Volume 10.9 fl (7.4-10.4); Platelet Count 58 10x3/uL (150-450); RBC Distribution Width 15.6 % (11.5-14.5); Red Blood Cell (RBC) Count 3.91 10x6/uL (3.90-5.03); White Blood Cell (WBC) Count 4.4 10x3/uL (3.5-10.5)
[2022-05-23] MEDS ORDERED: Ondansetron PF 4 MG/2 ML Vial ONE (04:04)
[2022-05-23 04:09] LABS: INR-International Normal Ratio 1.4; PTT 41.7 sec (22.0-33.0); Prothrombin Time 15.4 sec (9.5-12.1)
[2022-05-23 04:16] LABS: ALT (SGPT) 44 U/L (8-55); AST (SGOT) 40 U/L (5-34); Albumin 3.2 g/dL (3.4-4.8); Alkaline Phosphatase 187 U/L (40-110); Anion Gap 14 mmol/L (10-20); BUN (Urea Nitrogen) 65 mg/dL (9.8-20.1); Calc. Creatinine Clearance 0 mL/min (70-130); Calcium 8.6 mg/dL (7.8-10.44); Carbon Dioxide 16 mmol/L (23-31); Chloride 94 mmol/L (98-107); Estimated GFR 29; Globulin 3.8 g/dL (2.4-3.5); Glucose 133 mg/dL (83-110); Lipase 71 U/L (8-78); Magnesium 2.3 mg/dL (1.6-2.6); Potassium 5.4 mmol/L (3.5-5.1)
[2022-05-23 04:24] LABS: Sodium 119 mmol/L (136-145)
[2022-05-23 04:41] LABS: Bilirubin Neg (Negative); Blood, Urine 25 (Negative); Clarity Cloudy (Clear); Glucose, Urine (Dipstick) Normal (Negative); Ketone, Urine Negative (Negative); Leukocyte 500 (Negative); Nitrite Negative (Negative); Protein, Urine (Dipstick) 30 mg/dl (Neg-Trace); Specific Gravity, Urine 1.015 (1.005-1.030); Urobilinogen Normal mg/dL (Less than 2)
[2022-05-23 04:50] LABS: Bacteria/HPF 2+ HPF (None Seen); Squamous Epithelial 0-3 HPF (0-3); WBC/HPF Greater Than 50 HPF (0-3); Yeast-Budding 1+ HPF (None Seen)
[2022-05-23 04:51] LABS: Yeast-Hyphae 2+ HPF (None Seen)
[2022-05-23] MEDS ORDERED: cefTRIAXone\\ROCEPHIN 1 GM VIAL ONE (05:41)
[2022-05-23] MEDS ORDERED: Fluconazole 100 MG TAB PO SCH (05:45)
[2022-05-23] MEDS ORDERED: Piperacillin/Tazobactam 2.25 GM VIAL ONE (05:47)
[2022-05-23] MEDS ORDERED: Guaifenesin DM 100-10/5 ML UDCUP PO PRN (05:58)
[2022-05-23] MEDS ORDERED: Calcium Carbonate 500 MG ChewTAB PO PRN (05:58)
[2022-05-23] MEDS ORDERED: Famotidine/PF 20 mg/2ml Vial SLOW IVP SCH ×2 (06:00→11:00)
[2022-05-23] MEDS ORDERED: HYDROcodone/Acetaminophen 5/325 mg Tablet ONE ×2 (06:42→15:04)
[2022-05-23 08:49] LABS: Anion Gap 11 mmol/L (10-20); BUN (Urea Nitrogen) 63 mg/dL (9.8-20.1); Calc. Creatinine Clearance 0 mL/min (70-130); Calcium 8.3 mg/dL (7.8-10.44); Carbon Dioxide 17 mmol/L (23-31); Chloride 97 mmol/L (98-107); Estimated GFR 34; Glucose 103 mg/dL (83-110); Potassium 5.3 mmol/L (3.5-5.1); Sodium 120 mmol/L (136-145)
[2022-05-23] MEDS ORDERED: Ferrous Sulfate 325 MG TAB PO SCH (11:00)
[2022-05-23] MEDS ORDERED: Multivit, Therapeutic 1 TAB PO SCH (11:00)
[2022-05-23] MEDS ORDERED: Saccharomyces boulardii 250 MG CAP PO SCH (11:00)
[2022-05-23] MEDS ORDERED: Furosemide 20 MG TAB PO SCH (11:00)
[2022-05-23] MEDS ORDERED: Gabapentin 300 MG CAP PO SCH (11:00)
[2022-05-23] MEDS ORDERED: Cholecalciferol (Vitamin D3) 400 UNITS TAB PO SCH (11:00)
[2022-05-23] MEDS ORDERED: Gabapentin 300 MG CAP ONE (11:11)
[2022-05-23] MEDS ORDERED: Albumin 25% 100 ML ONE (11:12)
[2022-05-23] MEDS ORDERED: Famotidine/PF 20 mg/2ml Vial ONE (11:14)
[2022-05-23] MEDS: Albumin 25% 25 GM/100 ML BOT IVPB SCH ×2 (12:04→17:19)
[2022-05-23] MEDS: Vancomycin HCl 125 MG/5 ML (BATCHED) UDCUP PO SCH (13:18)
[2022-05-23 14:24] LABS: Anion Gap 14 mmol/L (10-20); BUN (Urea Nitrogen) 63 mg/dL (9.8-20.1); Calc. Creatinine Clearance 0 mL/min (70-130); Calcium 8.6 mg/dL (7.8-10.44); Carbon Dioxide 16 mmol/L (23-31); Chloride 97 mmol/L (98-107); Estimated GFR 33; Glucose 86 mg/dL (83-110); Potassium 5.3 mmol/L (3.5-5.1); Sodium 122 mmol/L (136-145)
[2022-05-23] MEDS ORDERED: Piperacillin/Tazobactam 3.375 GM VIAL ONE (15:04)
[2022-05-23] MEDS: Piperacillin/Tazobactam 3.375 GM in Sodium Chloride 0.9% 100 ML IVPB SCH ×2 (15:57→21:00)
[2022-05-23] MEDS: HYDROcodone/Acetaminophen 5/325 mg Tablet PO PRN (15:58)
[2022-05-23 21:26] LABS: Anion Gap 14 mmol/L (10-20); BUN (Urea Nitrogen) 64 mg/dL (9.8-20.1); Calc. Creatinine Clearance 35 mL/min (70-130); Calcium 8.8 mg/dL (7.8-10.44); Carbon Dioxide 15 mmol/L (23-31); Chloride 100 mmol/L (98-107); Estimated GFR 31; Glucose 79 mg/dL (83-110); Potassium 5.1 mmol/L (3.5-5.1); Sodium 124 mmol/L (136-145)
[2022-05-23] MEDS: Zinc Sulfate 220 MG CAP PO SCH (22:05)
[2022-05-23] MEDS: Sodium Bicarbonate Tab 325 MG TAB PO SCH (22:05)
[2022-05-23] MEDS: Gabapentin 300 MG CAP PO SCH (22:08)
[2022-05-23] MEDS: Rifaximin 550 MG TAB PO SCH (22:11)
[2022-05-24] MEDS: Albumin 25% 25 GM/100 ML BOT IVPB SCH ×2 (00:10→06:55)
[2022-05-24] MEDS: Acetaminophen 325 MG TAB PO PRN (01:00)
[2022-05-24 04:12] LABS: #Eosinphils 0.1 10x3/uL (0.0-0.5); #Monocytes 0.4 10x3/uL (0.0-1.1); #Neutrophils 2.6 10x3/uL (1.5-8.4); %Basophils 0.3 % (0.0-2.0); %Eosinophils 2.1 % (0.0-6.0); %Lymphocytes 8.4 % (18.0-47.0); %Monocytes 10.5 % (0.0-10.0); %Neutrophils 78.4 % (40.0-75.0); Hemoglobin 9.6 g/dL (12.0-15.5); Mean Corpuscular HGB CONC 33.9 g/dL (32.0-36.0); Mean Corpuscular Hemoglobin 28.9 pg (27.0-33.0); Mean Corpuscular Volume 85.2 fl (81.6-98.3); Mean Platelet Volume 10.9 fl (7.4-10.4); Platelet Count 42 10x3/uL (150-450); RBC Distribution Width 15.7 % (11.5-14.5); Red Blood Cell (RBC) Count 3.32 10x6/uL (3.90-5.03); White Blood Cell (WBC) Count 3.3 10x3/uL (3.5-10.5)
[2022-05-24 04:15] LABS: ALT (SGPT) 39 U/L (8-55); AST (SGOT) 37 U/L (5-34); Albumin 3.4 g/dL (3.4-4.8); Alkaline Phosphatase 106 U/L (40-110); Anion Gap 14 mmol/L (10-20); BUN (Urea Nitrogen) 63 mg/dL (9.8-20.1); Bilirubin, Total 1.6 mg/dL (0.2-1.2); Calc. Creatinine Clearance 35 mL/min (70-130); Calcium 8.7 mg/dL (7.8-10.44); Carbon Dioxide 16 mmol/L (23-31); Chloride 100 mmol/L (98-107); Estimated GFR 31; Globulin 2.6 g/dL (2.4-3.5); Glucose 81 mg/dL (83-110); Potassium 4.6 mmol/L (3.5-5.1); Sodium 125 mmol/L (136-145)
[2022-05-24] MEDS: Piperacillin/Tazobactam 3.375 GM in Sodium Chloride 0.9% 100 ML IVPB SCH ×2 (04:30→12:42)
[2022-05-24] MEDS: Levothyroxine Sodium 125 MCG TAB PO SCH (07:18)
[2022-05-24] MEDS: Gabapentin 300 MG CAP PO SCH ×2 (09:02→20:57)
[2022-05-24] MEDS: Ferrous Sulfate 325 MG TAB PO SCH (09:02)
[2022-05-24] MEDS: Furosemide 20 MG TAB PO SCH (09:02)
[2022-05-24] MEDS: Zinc Sulfate 220 MG CAP PO SCH ×2 (09:03→20:58)
[2022-05-24] MEDS: HYDROcodone/Acetaminophen 5/325 mg Tablet PO PRN ×3 (09:03→23:43)
[2022-05-24] MEDS: Sodium Bicarbonate Tab 325 MG TAB PO SCH ×3 (09:03→20:58)
[2022-05-24] MEDS: Cholecalciferol (Vitamin D3) 400 UNITS TAB PO SCH (09:03)
[2022-05-24] MEDS: Multivit, Therapeutic 1 TAB PO SCH (09:04)
[2022-05-24] MEDS: Rifaximin 550 MG TAB PO SCH ×2 (09:05→20:58)
[2022-05-24] MEDS: Nadolol 40 MG TAB PO SCH (09:05)
[2022-05-24] MEDS: Saccharomyces boulardii 250 MG CAP PO SCH (09:05)
[2022-05-24] MEDS ORDERED: Electrolyte Replacement Protocol 1 EACH FS SCH (17:45)
[2022-05-25] MEDS: Levothyroxine Sodium 125 MCG TAB PO SCH (05:31)
[2022-05-25] MEDS: Acetaminophen 325 MG TAB PO PRN (05:31)
[2022-05-25 05:38] LABS: #Eosinphils 0.1 10x3/uL (0.0-0.5); #Monocytes 0.4 10x3/uL (0.0-1.1); #Neutrophils 2.7 10x3/uL (1.5-8.4); %Basophils 0.3 % (0.0-2.0); %Eosinophils 2.3 % (0.0-6.0); %Lymphocytes 7.8 % (18.0-47.0); %Monocytes 10.3 % (0.0-10.0); %Neutrophils 78.4 % (40.0-75.0); Hemoglobin 10.1 g/dL (12.0-15.5); Mean Corpuscular HGB CONC 34.1 g/dL (32.0-36.0); Mean Corpuscular Volume 85.1 fl (81.6-98.3); Mean Platelet Volume 11.9 fl (7.4-10.4); Platelet Count 40 10x3/uL (150-450); RBC Distribution Width 15.8 % (11.5-14.5); Red Blood Cell (RBC) Count 3.48 10x6/uL (3.90-5.03); White Blood Cell (WBC) Count 3.5 10x3/uL (3.5-10.5)
[2022-05-25 05:40] LABS: ALT (SGPT) 39 U/L (8-55); AST (SGOT) 38 U/L (5-34); Albumin 3.5 g/dL (3.4-4.8); Alkaline Phosphatase 96 U/L (40-110); Anion Gap 14 mmol/L (10-20); BUN (Urea Nitrogen) 63 mg/dL (9.8-20.1); Bilirubin, Total 1.3 mg/dL (0.2-1.2); Calc. Creatinine Clearance 35 mL/min (70-130); Calcium 8.6 mg/dL (7.8-10.44); Carbon Dioxide 15 mmol/L (23-31); Chloride 100 mmol/L (98-107); Estimated GFR 31; Globulin 2.4 g/dL (2.4-3.5); Glucose 83 mg/dL (83-110); Magnesium 2.3 mg/dL (1.6-2.6); Phosphorus 4.3 mg/dL (2.3-4.7); Potassium 4.1 mmol/L (3.5-5.1); Protein, Total 5.9 g/dL (5.8-8.1); Sodium 125 mmol/L (136-145)
[2022-05-25] MEDS: HYDROcodone/Acetaminophen 5/325 mg Tablet PO PRN ×3 (06:45→19:30)
[2022-05-25] MEDS: Gabapentin 300 MG CAP PO SCH ×2 (08:55→21:09)
[2022-05-25] MEDS: Nadolol 40 MG TAB PO SCH (08:55)
[2022-05-25] MEDS: Rifaximin 550 MG TAB PO SCH ×2 (08:55→21:09)
[2022-05-25] MEDS: Multivit, Therapeutic 1 TAB PO SCH (08:56)
[2022-05-25] MEDS: Furosemide 20 MG TAB PO SCH (08:56)
[2022-05-25] MEDS: Cholecalciferol (Vitamin D3) 400 UNITS TAB PO SCH (08:56)
[2022-05-25] MEDS: Zinc Sulfate 220 MG CAP PO SCH ×2 (08:56→21:09)
[2022-05-25] MEDS: Ferrous Sulfate 325 MG TAB PO SCH (08:56)
[2022-05-25] MEDS: Saccharomyces boulardii 250 MG CAP PO SCH (08:56)
[2022-05-25] MEDS: Famotidine 20 MG TAB PO SCH (08:56)
[2022-05-25] MEDS: Sodium Bicarbonate Tab 325 MG TAB PO SCH ×3 (08:56→21:09)
[2022-05-25] MEDS: Ondansetron PF 4 MG/2 ML Vial IVP PRN (11:48)
[2022-05-25] MEDS: Vancomycin HCl 125 MG/5 ML (BATCHED) UDCUP PO SCH (12:42)
[2022-05-26] MEDS: HYDROcodone/Acetaminophen 5/325 mg Tablet PO PRN ×4 (01:30→21:33)
[2022-05-26 05:11] LABS: #Eosinphils 0.1 10x3/uL (0.0-0.5); #Monocytes 0.5 10x3/uL (0.0-1.1); #Neutrophils 3.3 10x3/uL (1.5-8.4); %Basophils 0.2 % (0.0-2.0); %Eosinophils 1.6 % (0.0-6.0); %Lymphocytes 8.2 % (18.0-47.0); %Monocytes 12.6 % (0.0-10.0); %Neutrophils 76.9 % (40.0-75.0); Hemoglobin 10.5 g/dL (12.0-15.5); Mean Corpuscular HGB CONC 34.4 g/dL (32.0-36.0); Mean Corpuscular Hemoglobin 29.2 pg (27.0-33.0); Mean Corpuscular Volume 84.7 fl (81.6-98.3); Mean Platelet Volume 11.7 fl (7.4-10.4); Platelet Count 38 10x3/uL (150-450); RBC Distribution Width 15.3 % (11.5-14.5); White Blood Cell (WBC) Count 4.3 10x3/uL (3.5-10.5)
[2022-05-26 05:21] LABS: Anion Gap 16 mmol/L (10-20); BUN (Urea Nitrogen) 57 mg/dL (9.8-20.1); Calc. Creatinine Clearance 40 mL/min (70-130); Calcium 8.6 mg/dL (7.8-10.44); Carbon Dioxide 13 mmol/L (23-31); Chloride 100 mmol/L (98-107); Estimated GFR 37; Glucose 102 mg/dL (83-110); Potassium 3.8 mmol/L (3.5-5.1); Sodium 125 mmol/L (136-145)
[2022-05-26] MEDS: Levothyroxine Sodium 125 MCG TAB PO SCH (06:43)
[2022-05-26] MEDS: Nadolol 40 MG TAB PO SCH (08:51)
[2022-05-26] MEDS: Ferrous Sulfate 325 MG TAB PO SCH (09:08)
[2022-05-26] MEDS: Gabapentin 300 MG CAP PO SCH ×2 (09:08→21:33)
[2022-05-26] MEDS: Cholecalciferol (Vitamin D3) 400 UNITS TAB PO SCH (09:09)
[2022-05-26] MEDS: Famotidine 20 MG TAB PO SCH (09:09)
[2022-05-26] MEDS: Saccharomyces boulardii 250 MG CAP PO SCH (09:09)
[2022-05-26] MEDS: Zinc Sulfate 220 MG CAP PO SCH ×2 (09:09→21:34)
[2022-05-26] MEDS: Multivit, Therapeutic 1 TAB PO SCH (09:09)
[2022-05-26] MEDS: Sodium Bicarbonate Tab 325 MG TAB PO SCH ×3 (09:09→21:34)
[2022-05-26] MEDS: Furosemide 20 MG TAB PO SCH (09:10)
[2022-05-26] MEDS: Rifaximin 550 MG TAB PO SCH ×2 (09:23→21:34)
[2022-05-27] MEDS: HYDROcodone/Acetaminophen 5/325 mg Tablet PO PRN ×4 (04:29→23:18)
[2022-05-27 05:03] LABS: #Eosinphils 0.1 10x3/uL (0.0-0.5); #Monocytes 0.4 10x3/uL (0.0-1.1); #Neutrophils 3.8 10x3/uL (1.5-8.4); %Basophils 0.2 % (0.0-2.0); %Eosinophils 2.7 % (0.0-6.0); %Lymphocytes 9.4 % (18.0-47.0); %Neutrophils 78.1 % (40.0-75.0); Hemoglobin 10.8 g/dL (12.0-15.5); Mean Corpuscular HGB CONC 34.2 g/dL (32.0-36.0); Mean Corpuscular Hemoglobin 29.1 pg (27.0-33.0); Mean Corpuscular Volume 85.2 fl (81.6-98.3); Mean Platelet Volume 11.5 fl (7.4-10.4); Platelet Count 41 10x3/uL (150-450); RBC Distribution Width 15.1 % (11.5-14.5); Red Blood Cell (RBC) Count 3.71 10x6/uL (3.90-5.03); White Blood Cell (WBC) Count 4.8 10x3/uL (3.5-10.5)
[2022-05-27 05:07] LABS: Lactic Acid 1.7 mmol/L (0.5-2.2)
[2022-05-27 05:11] LABS: Anion Gap 13 mmol/L (10-20); BUN (Urea Nitrogen) 52 mg/dL (9.8-20.1); Calc. Creatinine Clearance 87 mL/min (70-130); Calcium 8.5 mg/dL (7.8-10.44); Carbon Dioxide 16 mmol/L (23-31); Chloride 97 mmol/L (98-107); Estimated GFR 41; Glucose 93 mg/dL (83-110); Potassium 3.3 mmol/L (3.5-5.1); Sodium 123 mmol/L (136-145)
[2022-05-27] MEDS: Levothyroxine Sodium 125 MCG TAB PO SCH (05:54)
[2022-05-27] MEDS ORDERED: Potassium Chloride 20 MEQ TAB PO SCH (08:00)
[2022-05-27] MEDS: Multivit, Therapeutic 1 TAB PO SCH (08:23)
[2022-05-27] MEDS: Cholecalciferol (Vitamin D3) 400 UNITS TAB PO SCH (08:23)
[2022-05-27] MEDS: Zinc Sulfate 220 MG CAP PO SCH ×2 (08:23→20:50)
[2022-05-27] MEDS: Ferrous Sulfate 325 MG TAB PO SCH (08:24)
[2022-05-27] MEDS: Saccharomyces boulardii 250 MG CAP PO SCH (08:24)
[2022-05-27] MEDS: Sodium Bicarbonate Tab 325 MG TAB PO SCH ×3 (08:25→20:47)
[2022-05-27] MEDS: Famotidine 20 MG TAB PO SCH (08:25)
[2022-05-27] MEDS: Gabapentin 300 MG CAP PO SCH ×2 (08:25→20:48)
[2022-05-27] MEDS: Furosemide 20 MG TAB PO SCH (08:26)
[2022-05-27] MEDS: Nadolol 40 MG TAB PO SCH (08:26)
[2022-05-27] MEDS: Rifaximin 550 MG TAB PO SCH ×2 (08:42→20:49)
[2022-05-27] MEDS: Ondansetron PF 4 MG/2 ML Vial IVP PRN (09:00)
[2022-05-27] MEDS: Vancomycin HCl 125 MG/5 ML (BATCHED) UDCUP PO SCH (13:00)
[2022-05-28 05:01] LABS: Anion Gap 14 mmol/L (10-20); BUN (Urea Nitrogen) 54 mg/dL (9.8-20.1); Calc. Creatinine Clearance 43 mL/min (70-130); Calcium 8.2 mg/dL (7.8-10.44); Carbon Dioxide 15 mmol/L (23-31); Chloride 97 mmol/L (98-107); Estimated GFR 40; Glucose 87 mg/dL (83-110); Potassium 3.7 mmol/L (3.5-5.1); Sodium 122 mmol/L (136-145)
[2022-05-28 05:03] LABS: #Eosinphils 0.1 10x3/uL (0.0-0.5); #Monocytes 0.4 10x3/uL (0.0-1.1); #Neutrophils 3.3 10x3/uL (1.5-8.4); %Basophils 0.5 % (0.0-2.0); %Eosinophils 2.6 % (0.0-6.0); %Lymphocytes 10.1 % (18.0-47.0); %Monocytes 9.4 % (0.0-10.0); %Neutrophils 76.7 % (40.0-75.0); Hemoglobin 10.2 g/dL (12.0-15.5); Mean Corpuscular HGB CONC 34.5 g/dL (32.0-36.0); Mean Corpuscular Hemoglobin 29.1 pg (27.0-33.0); Mean Corpuscular Volume 84.6 fl (81.6-98.3); Mean Platelet Volume 11.8 fl (7.4-10.4); Platelet Count 39 10x3/uL (150-450); RBC Distribution Width 15.2 % (11.5-14.5); White Blood Cell (WBC) Count 4.3 10x3/uL (3.5-10.5)
[2022-05-28] MEDS: Levothyroxine Sodium 125 MCG TAB PO SCH (05:23)
[2022-05-28] MEDS: HYDROcodone/Acetaminophen 5/325 mg Tablet PO PRN ×3 (05:27→18:08)
[2022-05-28] MEDS: Sodium Bicarbonate Tab 325 MG TAB PO SCH ×3 (09:21→20:31)
[2022-05-28] MEDS: Furosemide 20 MG TAB PO SCH (09:21)
[2022-05-28] MEDS: Multivit, Therapeutic 1 TAB PO SCH (09:21)
[2022-05-28] MEDS: Rifaximin 550 MG TAB PO SCH ×2 (09:21→20:31)
[2022-05-28] MEDS: Saccharomyces boulardii 250 MG CAP PO SCH (09:21)
[2022-05-28] MEDS: Nadolol 40 MG TAB PO SCH (09:21)
[2022-05-28] MEDS: Famotidine 20 MG TAB PO SCH (09:21)
[2022-05-28] MEDS: Cholecalciferol (Vitamin D3) 400 UNITS TAB PO SCH (09:22)
[2022-05-28] MEDS: Ferrous Sulfate 325 MG TAB PO SCH (09:22)
[2022-05-28] MEDS: Gabapentin 300 MG CAP PO SCH ×2 (09:22→20:31)
[2022-05-28] MEDS: Zinc Sulfate 220 MG CAP PO SCH ×2 (09:22→20:31)
[2022-05-28] MEDS ORDERED: Sodium Chloride 1 GM TAB PO SCH (10:15)
[2022-05-28] MEDS: Sodium Chloride 1 GM TAB PO SCH ×2 (14:44→20:31)
[2022-05-29] MEDS: HYDROcodone/Acetaminophen 5/325 mg Tablet PO PRN ×4 (00:19→19:50)
[2022-05-29 04:24] LABS: Anion Gap 13 mmol/L (10-20); BUN (Urea Nitrogen) 53 mg/dL (9.8-20.1); Calc. Creatinine Clearance 43 mL/min (70-130); Calcium 8.2 mg/dL (7.8-10.44); Carbon Dioxide 16 mmol/L (23-31); Chloride 100 mmol/L (98-107); Estimated GFR 40; Glucose 86 mg/dL (83-110); Potassium 3.3 mmol/L (3.5-5.1); Sodium 126 mmol/L (136-145)
[2022-05-29 04:27] LABS: Hemoglobin 9.7 g/dL (12.0-15.5); Mean Corpuscular HGB CONC 34.3 g/dL (32.0-36.0); Mean Corpuscular Hemoglobin 29.1 pg (27.0-33.0); Platelet Count 41 10x3/uL (150-450); RBC Distribution Width 15.4 % (11.5-14.5); Red Blood Cell (RBC) Count 3.33 10x6/uL (3.90-5.03); White Blood Cell (WBC) Count 3.4 10x3/uL (3.5-10.5)
[2022-05-29 04:28] LABS: MDiff Complete? YES
[2022-05-29 05:06] LABS: Anisocytosis SLIGHT = 6-15 cells (100X) (0-5/hpf); Band 1 % (5-11); Eosinophils 2 % (0-10); Lymphocytes 9 % (21-51); Monocytes 9 % (0-10); Neutrophil 79 % (42-75)
[2022-05-29 05:07] LABS: Hypochromia SLIGHT = 6-15 cells (100X) (0-5/hpf); Ovalocytes SLIGHT = 2-5 cells (100X) (0-1/hpf); Platelet Morphology Comment Appears Decreased
[2022-05-29] MEDS: Levothyroxine Sodium 125 MCG TAB PO SCH (06:03)
[2022-05-29] MEDS: Cholecalciferol (Vitamin D3) 400 UNITS TAB PO SCH (07:59)
[2022-05-29] MEDS: Famotidine 20 MG TAB PO SCH (07:59)
[2022-05-29] MEDS: Gabapentin 300 MG CAP PO SCH ×2 (07:59→22:00)
[2022-05-29] MEDS: Sodium Bicarbonate Tab 325 MG TAB PO SCH ×3 (07:59→21:59)
[2022-05-29] MEDS: Zinc Sulfate 220 MG CAP PO SCH ×2 (07:59→22:23)
[2022-05-29] MEDS: Rifaximin 550 MG TAB PO SCH ×2 (07:59→21:59)
[2022-05-29] MEDS: Nadolol 40 MG TAB PO SCH (07:59)
[2022-05-29] MEDS: Sodium Chloride 1 GM TAB PO SCH ×3 (07:59→22:00)
[2022-05-29] MEDS ORDERED: Potassium Chloride 20 MEQ TAB PO SCH (08:00)
[2022-05-29] MEDS: Saccharomyces boulardii 250 MG CAP PO SCH (08:00)
[2022-05-29] MEDS: Multivit, Therapeutic 1 TAB PO SCH (08:00)
[2022-05-29] MEDS: Furosemide 20 MG TAB PO SCH (08:00)
[2022-05-29] MEDS: Ferrous Sulfate 325 MG TAB PO SCH (08:00)
[2022-05-29 13:39] VITALS: BMI 30.6
[2022-05-30 04:53] LABS: Hemoglobin 10.1 g/dL (12.0-15.5); MDiff Complete? YES; Mean Corpuscular HGB CONC 34.6 g/dL (32.0-36.0); Mean Corpuscular Hemoglobin 29.4 pg (27.0-33.0); Mean Corpuscular Volume 84.9 fl (81.6-98.3); Mean Platelet Volume 13.4 fl (7.4-10.4); Platelet Count 40 10x3/uL (150-450); RBC Distribution Width 15.6 % (11.5-14.5); Red Blood Cell (RBC) Count 3.44 10x6/uL (3.90-5.03); White Blood Cell (WBC) Count 3.9 10x3/uL (3.5-10.5)
[2022-05-30 04:55] LABS: Anion Gap 14 mmol/L (10-20); BUN (Urea Nitrogen) 51 mg/dL (9.8-20.1); Calc. Creatinine Clearance 47 mL/min (70-130); Calcium 8.2 mg/dL (7.8-10.44); Carbon Dioxide 16 mmol/L (23-31); Chloride 102 mmol/L (98-107); Estimated GFR 45; Glucose 81 mg/dL (83-110); Potassium 3.6 mmol/L (3.5-5.1); Sodium 128 mmol/L (136-145)
[2022-05-30 05:28] LABS: Anisocytosis SLIGHT = 6-15 cells (100X) (0-5/hpf); Band 1 % (5-11); Eosinophils 4 % (0-10); Lymphocytes 15 % (21-51); Monocytes 8 % (0-10); Neutrophil 69 % (42-75); Platelet Morphology Comment Appears Decreased; Reactive Lymphocytes 2 % (0-10)
[2022-05-30] MEDS: HYDROcodone/Acetaminophen 5/325 mg Tablet PO PRN ×2 (05:47→13:51)
[2022-05-30] MEDS: Levothyroxine Sodium 125 MCG TAB PO SCH (06:36)
[2022-05-30] MEDS: Cholecalciferol (Vitamin D3) 400 UNITS TAB PO SCH (07:35)
[2022-05-30] MEDS: Famotidine 20 MG TAB PO SCH (07:36)
[2022-05-30] MEDS: Multivit, Therapeutic 1 TAB PO SCH (07:36)
[2022-05-30] MEDS: Zinc Sulfate 220 MG CAP PO SCH (07:36)
[2022-05-30] MEDS: Saccharomyces boulardii 250 MG CAP PO SCH (07:36)
[2022-05-30] MEDS: Ferrous Sulfate 325 MG TAB PO SCH (07:36)
[2022-05-30 08:14] LABS: SARS-CoV-2 NAA Rapid Test Not Detected (NotDetected)
[2022-05-30 08:29] VITALS: TEMP 98.3
[2022-05-30] MEDS: Sodium Chloride 1 GM TAB PO SCH (09:36)
[2022-05-30] MEDS: Nadolol 40 MG TAB PO SCH (09:36)
[2022-05-30] MEDS: Furosemide 20 MG TAB PO SCH (09:36)
[2022-05-30] MEDS: Gabapentin 300 MG CAP PO SCH (09:36)
[2022-05-30] MEDS: Rifaximin 550 MG TAB PO SCH (09:36)
[2022-05-30] MEDS: Sodium Bicarbonate Tab 325 MG TAB PO SCH (09:36)
[2022-05-30] MEDS: Ondansetron PF 4 MG/2 ML Vial IVP PRN (10:23)
[2022-05-30 12:18] LABS: BF Color Yellow; Body Fluid Source Ascites Body Fluid; Clarity Hazy (Clear); Tube # EDTA
[2022-05-30 12:59] LABS: BF Segmented Neutrophils 13 %; Cell Count Non Hematic 56 %; Lymphocytes 31 %
[2022-05-30 15:16] VITALS: BP 107/66
== END 2022-05-30 14:50 | disposition home or self-care (01) | DRG 441 ==
LOC: SUATTDRO 03:19 → CSHERS 03:19 → CSHERHOLD 10:29 → CSHTELE 15:35
PROVIDERS: ADMIT Emergency Medicine; ATTEND Internal Medicine
PROC: 30233J1 Transfusion of Nonautologous Serum Albumin into Peripheral Vein, Percutaneous Approach (ICD-10-PCS; 2022-05-23)
PROC: 0W9G3ZZ Drainage of Peritoneal Cavity, Percutaneous Approach (ICD-10-PCS; principal; 2022-05-24)
PROC: 0W9G3ZZ Drainage of Peritoneal Cavity, Percutaneous Approach (ICD-10-PCS; 2022-05-30)
DX: K76.82 Hepatic encephalopathy (principal); G93.41 Metabolic encephalopathy; I81 Portal vein thrombosis; K76.7 Hepatorenal syndrome; T83.511A Infection and inflammatory reaction due to indwelling urethral catheter, initial encounter; N39.0 Urinary tract infection, site not specified; E87.1 Hypo-osmolality and hyponatremia; K76.6 Portal hypertension; D68.9 Coagulation defect, unspecified; I82.891 Chronic embolism and thrombosis of other specified veins; N17.9 Acute kidney failure, unspecified; D61.818 Other pancytopenia; E78.5 Hyperlipidemia, unspecified; I48.0 Paroxysmal atrial fibrillation; E03.9 Hypothyroidism, unspecified; K29.70 Gastritis, unspecified, without bleeding; E87.5 Hyperkalemia; K21.9 Gastro-esophageal reflux disease without esophagitis; M06.9 Rheumatoid arthritis, unspecified; M10.9 Gout, unspecified; N18.30 Chronic kidney disease, stage 3 unspecified; E88.09 Other disorders of plasma-protein metabolism, not elsewhere classified; I12.9 Hypertensive chronic kidney disease with stage 1 through stage 4 chronic kidney disease, or unspecified chronic kidney disease; E66.9 Obesity, unspecified; Z20.822 Contact with and (suspected) exposure to COVID-19; Z88.5 Allergy status to narcotic agent; Z79.899 Other long term (current) drug therapy; Z95.0 Presence of cardiac pacemaker; Z90.49 Acquired absence of other specified parts of digestive tract; Z90.710 Acquired absence of both cervix and uterus; Z68.30 Body mass index [BMI] 30.0-30.9, adult
CPT/HCPCS: 36415; 49083; 51701; 74177; 76705; 80048; 80053; 81003; 81015; 82042; 82140; 83605; 83690; 83735; 84100; 85025; 85730; 87040; 87070; 87077; 87086; 87186; 87205; 87324; 87449; 89051; 93005; 96365; 97139; J0696; J2405; J2543; J3490; P9047; S0028; U0002

== ENCOUNTER → 2022-06-05 | Day surgery (SDC) | payer MEDICARE ==
[2022-05-31 13:35] VITALS: BMI 25.5
[~2022-06-05] MED LIST: FLU VACC QS2022-23(65YR UP)/PF 240 MCG/0.7 ML SYRINGE IM ONE; Lidocaine 1% PF 5 ML VIAL ONE; Sodium Bicarbonate 2.5 MEQ/5 ML VIAL ONE
== END ==
LOC: CSHULT 12:33
PROVIDERS: ATTEND Physician Assistant Medical
PROC: 0W9G3ZZ Drainage of Peritoneal Cavity, Percutaneous Approach (ICD-10-PCS; principal; 2022-06-05)
DX: R18.8 Other ascites (principal)
CPT/HCPCS: 36415; 49083; 80048; 82570; 83540; 83550; 84156; 85014; 85018

== ENCOUNTER 2022-06-11 13:13 | Inpatient (IN) | payer MEDICARE ==
[2022-06-11 15:15] LABS: #Eosinphils 0.2 10x3/uL (0.0-0.5); #Monocytes 0.5 10x3/uL (0.0-1.1); #Neutrophils 3.8 10x3/uL (1.5-8.4); %Basophils 0.2 % (0.0-2.0); %Eosinophils 3.3 % (0.0-6.0); %Lymphocytes 13.1 % (18.0-47.0); %Monocytes 9.6 % (0.0-10.0); Hemoglobin 10.9 g/dL (12.0-15.5); Mean Corpuscular HGB CONC 34.2 g/dL (32.0-36.0); Mean Corpuscular Hemoglobin 29.5 pg (27.0-33.0); Mean Corpuscular Volume 86.2 fl (81.6-98.3); Platelet Count 71 10x3/uL (150-450); RBC Distribution Width 17.1 % (11.5-14.5); White Blood Cell (WBC) Count 5.2 10x3/uL (3.5-10.5)
[2022-06-11 15:27] LABS: ALT (SGPT) 53 U/L (8-55); AST (SGOT) 44 U/L (5-34); Albumin 2.9 g/dL (3.4-4.8); Alkaline Phosphatase 157 U/L (40-110); Anion Gap 16 mmol/L (10-20); BUN (Urea Nitrogen) 81 mg/dL (9.8-20.1); Bilirubin, Total 1.3 mg/dL (0.2-1.2); Calc. Creatinine Clearance 0 mL/min (70-130); Calcium 8.4 mg/dL (7.8-10.44); Carbon Dioxide 15 mmol/L (23-31); Chloride 101 mmol/L (98-107); Estimated GFR 26; Globulin 3.3 g/dL (2.4-3.5); Glucose 99 mg/dL (83-110); Lipase 35 U/L (8-78); Potassium 4.9 mmol/L (3.5-5.1); Protein, Total 6.2 g/dL (5.8-8.1); Sodium 127 mmol/L (136-145)
[2022-06-11 15:31] LABS: Platelet Morphology Comment Appears Decreased
[2022-06-11 15:32] LABS: RBC Morphology Normal
[2022-06-11] MEDS ORDERED: Sodium Chloride 0.9% 1,000 ML IV SCH (20:00)
[2022-06-11] MEDS ORDERED: cefTRIAXone Sodium 1,000 MG in Syringe 0 ML IVPB SCH (20:00)
[2022-06-11] MEDS ORDERED: cefTRIAXone\\ROCEPHIN 1 GM in Sodium Chloride 0.9% 100 ML IVPB SCH (20:15)
[2022-06-11] MEDS ORDERED: cefTRIAXone\\ROCEPHIN 1 GM VIAL ONE (20:20)
[2022-06-11 20:32] LABS: INR-International Normal Ratio 1.4; PTT 36.1 sec (22.0-33.0); Prothrombin Time 15.1 sec (9.5-12.1)
[2022-06-11] MEDS: cefTRIAXone\\ROCEPHIN 1 GM in Sodium Chloride 0.9% 100 ML IVPB SCH (20:36)
[2022-06-11 20:57] LABS: Magnesium 2.4 mg/dL (1.6-2.6)
[2022-06-11] MEDS: Lactulose 10 GM/15 ML Oral Solution PR SCH (22:00)
[2022-06-11] MEDS: Rifaximin 550 MG TAB PO SCH (23:08)
[2022-06-11] MEDS ORDERED: Famotidine/PF 20 mg/2ml Vial ONE (23:17)
[2022-06-11] MEDS: Famotidine/PF 20 mg/2ml Vial SLOW IVP SCH (23:21)
[2022-06-11] MEDS ORDERED: Lidocaine 1% (PF) 30 ML VIAL ONE (23:42)
[2022-06-12] MEDS ORDERED: Albumin 25% 100 ML ONE ×3 (00:58→11:31)
[2022-06-12] MEDS: Albumin 25% 25 GM/100 ML BOT IVPB SCH ×4 (01:05→18:19)
[2022-06-12 03:36] LABS: #Eosinphils 0.1 10x3/uL (0.0-0.5); #Monocytes 0.5 10x3/uL (0.0-1.1); #Neutrophils 2.1 10x3/uL (1.5-8.4); %Basophils 0.3 % (0.0-2.0); %Eosinophils 3.9 % (0.0-6.0); %Monocytes 14.5 % (0.0-10.0); Mean Corpuscular HGB CONC 33.8 g/dL (32.0-36.0); Mean Corpuscular Hemoglobin 29.5 pg (27.0-33.0); Mean Corpuscular Volume 87.3 fl (81.6-98.3); Mean Platelet Volume 11.9 fl (7.4-10.4); Platelet Count 39 10x3/uL (150-450); RBC Distribution Width 17.3 % (11.5-14.5); Red Blood Cell (RBC) Count 3.39 10x6/uL (3.90-5.03); White Blood Cell (WBC) Count 3.4 10x3/uL (3.5-10.5)
[2022-06-12 03:47] LABS: Anion Gap 17 mmol/L (10-20); BUN (Urea Nitrogen) 78 mg/dL (9.8-20.1); Calc. Creatinine Clearance 0 mL/min (70-130); Calcium 8.3 mg/dL (7.8-10.44); Carbon Dioxide 16 mmol/L (23-31); Chloride 103 mmol/L (98-107); Estimated GFR 29; Glucose 71 mg/dL (83-110); Potassium 4.9 mmol/L (3.5-5.1); Sodium 131 mmol/L (136-145)
[2022-06-12 04:00] LABS: BF Color Yellow; Body Fluid Source Paracentesis Fluid; Clarity Hazy (Clear); Tube # EDTA
[2022-06-12 04:07] LABS: Bilirubin Neg (Negative); Blood, Urine 150 (Negative); Glucose, Urine (Dipstick) Normal (Negative); Ketone, Urine Negative (Negative); Leukocyte 25 (Negative); Nitrite Negative (Negative); Protein, Urine (Dipstick) 30 mg/dl (Neg-Trace); Urobilinogen Normal mg/dL (Less than 2)
[2022-06-12 04:08] LABS: Clarity Hazy (Clear)
[2022-06-12 04:11] LABS: Bacteria/HPF 1+ HPF (None Seen); CAUTI Indications for Culture Alt mental st,lethar; Squamous Epithelial 0-3 HPF (0-3); WBC/HPF 0-3 HPF (0-3)
[2022-06-12 04:12] LABS: Urine Culture Reflex No No
[2022-06-12 04:19] LABS: Anisocytosis SLIGHT = 6-15 cells (100X) (0-5/hpf); Platelet Morphology Comment Appears Decreased
[2022-06-12 04:24] LABS: BF Segmented Neutrophils 13 %; Cell Count Non Hematic 31 %; Lymphocytes 56 %
[2022-06-12] MEDS: Lactulose 10 GM/15 ML Oral Solution PR SCH ×2 (06:32→18:20)
[2022-06-12] MEDS: Levothyroxine Sodium 125 MCG TAB PO SCH (06:33)
[2022-06-12] MEDS ORDERED: Ketorolac Tromethamine 30 MG/ML VIAL IVP SCH (06:45)
[2022-06-12] MEDS ORDERED: Ketorolac Tromethamine 30 MG/ML VIAL ONE (06:49)
[2022-06-12] MEDS ORDERED: Lactated Ringer's 1,000 ML IV SCH (07:45)
[2022-06-12] MEDS: Famotidine/PF 20 mg/2ml Vial SLOW IVP SCH (08:14)
[2022-06-12] MEDS: Rifaximin 550 MG TAB PO SCH ×2 (08:14→21:19)
[2022-06-12] MEDS ORDERED: Pantoprazole 40 MG VIAL IVP SCH (09:00)
[2022-06-12] MEDS ORDERED: Morphine 2 MG/ML VIAL ONE (11:35)
[2022-06-12] MEDS ORDERED: Morphine 2 MG/ML VIAL SLOW IVP SCH (12:00)
[2022-06-12 17:17] VITALS: BMI 21.7
[2022-06-12] MEDS: HYDROcodone/Acetaminophen 5/325 mg Tablet PO SCH (19:35)
[2022-06-12] MEDS ORDERED: METOPROLOL TARTRATE 100 MG PO SCH (21:00)
[2022-06-12] MEDS: Zinc Sulfate 220 MG CAP PO SCH (21:19)
[2022-06-12] MEDS: Gabapentin 300 MG CAP PO SCH (21:20)
[2022-06-12] MEDS: cefTRIAXone\\ROCEPHIN 1 GM in Sodium Chloride 0.9% 100 ML IVPB SCH (21:20)
[2022-06-13] MEDS: HYDROcodone/Acetaminophen 5/325 mg Tablet PO SCH ×3 (04:18→21:12)
[2022-06-13 05:01] LABS: Hemoglobin 9.7 g/dL (12.0-15.5); MDiff Complete? YES; Mean Corpuscular HGB CONC 32.6 g/dL (32.0-36.0); Mean Corpuscular Hemoglobin 29.4 pg (27.0-33.0); Mean Corpuscular Volume 90.3 fl (81.6-98.3); Mean Platelet Volume 12.6 fl (7.4-10.4); Platelet Count 47 10x3/uL (150-450); RBC Distribution Width 17.8 % (11.5-14.5); White Blood Cell (WBC) Count 3.2 10x3/uL (3.5-10.5)
[2022-06-13] MEDS: Levothyroxine Sodium 125 MCG TAB PO SCH (05:07)
[2022-06-13 05:27] LABS: ALT (SGPT) 41 U/L (8-55); AST (SGOT) 40 U/L (5-34); Albumin 3.7 g/dL (3.4-4.8); Alkaline Phosphatase 94 U/L (40-110); Anion Gap 15 mmol/L (10-20); BUN (Urea Nitrogen) 75 mg/dL (9.8-20.1); Bilirubin, Total 1.1 mg/dL (0.2-1.2); Calc. Creatinine Clearance 24 mL/min (70-130); Calcium 8.8 mg/dL (7.8-10.44); Carbon Dioxide 17 mmol/L (23-31); Chloride 106 mmol/L (98-107); Estimated GFR 31; Globulin 2.5 g/dL (2.4-3.5); Glucose 76 mg/dL (83-110); Magnesium 2.4 mg/dL (1.6-2.6); Phosphorus 3.9 mg/dL (2.3-4.7); Potassium 5.2 mmol/L (3.5-5.1); Protein, Total 6.2 g/dL (5.8-8.1); Sodium 133 mmol/L (136-145)
[2022-06-13 05:51] LABS: Eosinophils 5 % (0-10); Lymphocytes 15 % (21-51); Monocytes 8 % (0-10); Neutrophil 72 % (42-75)
[2022-06-13 05:52] LABS: Anisocytosis SLIGHT = 6-15 cells (100X) (0-5/hpf); Hypochromia SLIGHT = 6-15 cells (100X) (0-5/hpf)
[2022-06-13 05:53] LABS: Platelet Morphology Comment Appears Decreased
[2022-06-13] MEDS ORDERED: LEVOTHYROXINE SODIUM 125 MCG PO SCH (09:00)
[2022-06-13] MEDS ORDERED: Saccharomyces boulardii 250 MG CAP PO SCH (09:00)
[2022-06-13] MEDS ORDERED: Non-Formulary Medication 1 EACH (Omeprazole [Omeprazole] 20 MG Capsule.Dr) PO SCH (09:00)
[2022-06-13] MEDS ORDERED: Spironolactone 25 MG TAB PO SCH (09:15)
[2022-06-13] MEDS: Cholecalciferol (Vitamin D3) 400 UNITS TAB PO SCH (09:42)
[2022-06-13] MEDS: Loratadine 10 MG TAB PO SCH (09:42)
[2022-06-13] MEDS: Magnesium Oxide 250 MG TAB PO SCH (09:42)
[2022-06-13] MEDS: Furosemide 20 MG TAB PO SCH (09:42)
[2022-06-13] MEDS: Zinc Sulfate 220 MG CAP PO SCH ×2 (09:42→21:12)
[2022-06-13] MEDS: Lidocaine 5% Patch TD SCH (09:43)
[2022-06-13] MEDS: Famotidine/PF 20 mg/2ml Vial SLOW IVP SCH (09:43)
[2022-06-13] MEDS: Gabapentin 300 MG CAP PO SCH ×2 (09:43→21:12)
[2022-06-13] MEDS: Rifaximin 550 MG TAB PO SCH ×2 (10:07→23:30)
[2022-06-13] MEDS ORDERED: Transdermal Patch Removal TOP SCH (21:00)
[2022-06-13] MEDS: cefTRIAXone\\ROCEPHIN 1 GM in Sodium Chloride 0.9% 100 ML IVPB SCH (21:13)
[2022-06-14 04:33] LABS: Hemoglobin 10.6 g/dL (12.0-15.5); MDiff Complete? YES; Mean Corpuscular HGB CONC 32.9 g/dL (32.0-36.0); Mean Corpuscular Hemoglobin 29.9 pg (27.0-33.0); Platelet Count 46 10x3/uL (150-450); RBC Distribution Width 17.9 % (11.5-14.5); Red Blood Cell (RBC) Count 3.54 10x6/uL (3.90-5.03); White Blood Cell (WBC) Count 4.5 10x3/uL (3.5-10.5)
[2022-06-14 04:55] LABS: Eosinophils 2 % (0-10); Lymphocytes 8 % (21-51); Monocytes 13 % (0-10); Neutrophil 77 % (42-75)
[2022-06-14 04:57] LABS: Anisocytosis SLIGHT = 6-15 cells (100X) (0-5/hpf); Platelet Morphology Comment Appears Decreased
[2022-06-14] MEDS: HYDROcodone/Acetaminophen 5/325 mg Tablet PO SCH ×2 (05:12→11:10)
[2022-06-14] MEDS: Levothyroxine Sodium 125 MCG TAB PO SCH (05:32)
[2022-06-14] MEDS ORDERED: Spironolactone 25 MG TAB PO SCH (08:00)
[2022-06-14 08:47] LABS: ALT (SGPT) 56 U/L (8-55); AST (SGOT) 51 U/L (5-34); Albumin 3.9 g/dL (3.4-4.8); Alkaline Phosphatase 125 U/L (40-110); Anion Gap 16 mmol/L (10-20); BUN (Urea Nitrogen) 67 mg/dL (9.8-20.1); Bilirubin, Total 1.2 mg/dL (0.2-1.2); Calc. Creatinine Clearance 26 mL/min (70-130); Calcium 9.2 mg/dL (7.8-10.44); Carbon Dioxide 16 mmol/L (23-31); Chloride 104 mmol/L (98-107); Estimated GFR 34; Globulin 3.2 g/dL (2.4-3.5); Glucose 102 mg/dL (83-110); Potassium 4.6 mmol/L (3.5-5.1); Protein, Total 7.1 g/dL (5.8-8.1); Sodium 131 mmol/L (136-145)
[2022-06-14] MEDS ORDERED: Potassium Chloride 10 MEQ TAB PO SCH ×2 (09:00)
[2022-06-14] MEDS: Furosemide 20 MG TAB PO SCH (09:11)
[2022-06-14] MEDS: Gabapentin 300 MG CAP PO SCH (09:11)
[2022-06-14] MEDS: Loratadine 10 MG TAB PO SCH (09:11)
[2022-06-14] MEDS: Magnesium Oxide 250 MG TAB PO SCH (09:11)
[2022-06-14] MEDS: Lidocaine 5% Patch TD SCH (09:11)
[2022-06-14] MEDS: Zinc Sulfate 220 MG CAP PO SCH (09:11)
[2022-06-14] MEDS: Cholecalciferol (Vitamin D3) 400 UNITS TAB PO SCH (09:12)
[2022-06-14] MEDS: Famotidine/PF 20 mg/2ml Vial SLOW IVP SCH (09:12)
[2022-06-14] MEDS: Rifaximin 550 MG TAB PO SCH (09:15)
[2022-06-14 11:59] VITALS: BP 161/71; TEMP 98
[2022-06-14] MEDS ORDERED: Saccharomyces boulardii 250 MG CAP PO SCH (15:00)
[2022-06-15] MEDS ORDERED: Famotidine/PF 20 mg/2ml Vial SLOW IVP SCH (09:00)
== END 2022-06-14 13:45 | DRG 441 ==
LOC: CSHERS 13:13 → CSHERHOLD 18:25 → CSHTELE 06-12 13:51
PROVIDERS: ADMIT Family Medicine; ATTEND Family Medicine
PROC: 30233J1 Transfusion of Nonautologous Serum Albumin into Peripheral Vein, Percutaneous Approach (ICD-10-PCS; 2022-06-11)
PROC: 0W9G3ZZ Drainage of Peritoneal Cavity, Percutaneous Approach (ICD-10-PCS; principal; 2022-06-12)
PROC: 0W9G30Z Drainage of Peritoneal Cavity with Drainage Device, Percutaneous Approach (ICD-10-PCS; 2022-06-12)
DX: K76.82 Hepatic encephalopathy (principal); K65.2 Spontaneous bacterial peritonitis; K76.6 Portal hypertension; N17.9 Acute kidney failure, unspecified; R18.8 Other ascites; K74.60 Unspecified cirrhosis of liver; N18.9 Chronic kidney disease, unspecified; I48.0 Paroxysmal atrial fibrillation; K52.9 Noninfective gastroenteritis and colitis, unspecified; K21.9 Gastro-esophageal reflux disease without esophagitis; E78.5 Hyperlipidemia, unspecified; E03.9 Hypothyroidism, unspecified; I12.9 Hypertensive chronic kidney disease with stage 1 through stage 4 chronic kidney disease, or unspecified chronic kidney disease; M06.9 Rheumatoid arthritis, unspecified; M10.9 Gout, unspecified; E87.5 Hyperkalemia; Z66 Do not resuscitate; D63.8 Anemia in other chronic diseases classified elsewhere; I35.0 Nonrheumatic aortic (valve) stenosis; D69.6 Thrombocytopenia, unspecified; Z20.822 Contact with and (suspected) exposure to COVID-19; Z95.0 Presence of cardiac pacemaker; Z90.49 Acquired absence of other specified parts of digestive tract; Z90.710 Acquired absence of both cervix and uterus; Z88.5 Allergy status to narcotic agent; Z79.899 Other long term (current) drug therapy
CPT/HCPCS: 36415; 49083; 51701; 70450; 80048; 80053; 81001; 82140; 83690; 83735; 84100; 84443; 84484; 85025; 85610; 85730; 87040; 87070; 87205; 89051; 93005; 94760; J0696; J1885; J2001; J2272; J3490; J7050; J7120; P9047; S0028; U0003; U0005

== ENCOUNTER 2022-06-19 11:59 | Day surgery (SDC) | payer MEDICARE ==
[2022-06-19] MEDS ORDERED: Sodium Bicarbonate 2.5 MEQ/5 ML VIAL ONE (12:27)
[2022-06-19] MEDS ORDERED: Albumin 25% 100 ML ONE (12:27)
[2022-06-19 14:00] VITALS: BP 109/54; TEMP 98.2
[2022-06-19] MEDS ORDERED: FLU VACC QS2022-23(65YR UP)/PF 240 MCG/0.7 ML SYRINGE IM ONE (14:15)
== END 2022-06-19 13:40 | disposition home or self-care (01) ==
LOC: CSHULT 11:59
PROVIDERS: ATTEND Physician Assistant Medical
PROC: 0W9G3ZZ Drainage of Peritoneal Cavity, Percutaneous Approach (ICD-10-PCS; principal; 2022-06-19)
DX: R18.8 Other ascites (principal)
CPT/HCPCS: 49083; P9047

== ENCOUNTER 2022-06-25 13:43 | Emergency (ER) | payer MEDICARE ==
[2022-06-25 14:12] LABS: Bilirubin Neg (Negative); Blood, Urine 250 (Negative); Clarity Clear (Clear); Glucose, Urine (Dipstick) Normal (Negative); Ketone, Urine 5 mg/dL (Negative); Leukocyte 500 (Negative); Nitrite Positive (Negative); Protein, Urine (Dipstick) 500 mg/dl (Neg-Trace); Specific Gravity, Urine 1.025 (1.005-1.030); Urobilinogen Normal mg/dL (Less than 2)
[2022-06-25 14:22] LABS: Bacteria/HPF 4+ HPF (None Seen); Mucous/LPF 2+ LPF (<2+); RBC/HPF 21-50 HPF (0-3); Squamous Epithelial 0-3 HPF (0-3); WBC/HPF Greater than 50 HPF (0-3); White Blood Cell Cast 0-3 LPF (None Seen); Yeast-Hyphae 1+ HPF (None Seen)
[2022-06-25] MEDS ORDERED: Lidocaine 1% PF 5 ML VIAL ONE (14:48)
[2022-06-25] MEDS ORDERED: cefTRIAXone\\ROCEPHIN 1 GM VIAL ONE (14:48)
== END 2022-06-25 17:00 | disposition home or self-care (01) ==
LOC: CSHERS 13:43
DX: N39.0 Urinary tract infection, site not specified (principal); K21.9 Gastro-esophageal reflux disease without esophagitis; E78.5 Hyperlipidemia, unspecified; I12.9 Hypertensive chronic kidney disease with stage 1 through stage 4 chronic kidney disease, or unspecified chronic kidney disease; N18.9 Chronic kidney disease, unspecified; E03.9 Hypothyroidism, unspecified
CPT/HCPCS: 81003; 81015; 87077; 87086; 96372; 99283; J0696

== ENCOUNTER 2022-07-01 22:04 | Emergency (ER) | payer MEDICARE ==
[2022-07-01 23:06] LABS: #Eosinphils 0.2 10x3/uL (0.0-0.5); #Monocytes 0.7 10x3/uL (0.0-1.1); #Neutrophils 4.8 10x3/uL (1.5-8.4); %Basophils 0.3 % (0.0-2.0); %Eosinophils 3.1 % (0.0-6.0); %Monocytes 10.8 % (0.0-10.0); Hemoglobin 9.2 g/dL (12.0-15.5); Mean Corpuscular HGB CONC 34.1 g/dL (32.0-36.0); Mean Corpuscular Hemoglobin 30.3 pg (27.0-33.0); Mean Corpuscular Volume 88.8 fl (81.6-98.3); Mean Platelet Volume 11.2 fl (7.4-10.4); Platelet Count 66 10x3/uL (150-450); RBC Distribution Width 17.2 % (11.5-14.5); Red Blood Cell (RBC) Count 3.04 10x6/uL (3.90-5.03); White Blood Cell (WBC) Count 6.3 10x3/uL (3.5-10.5)
[2022-07-01] MEDS ORDERED: Vancomycin 1 GM VIAL ONE (23:14)
[2022-07-01] MEDS ORDERED: cefTRIAXone (ROCEPHIN) 1 GM VIAL ONE (23:15)
[2022-07-01 23:18] LABS: ALT (SGPT) 41 U/L (8-55); AST (SGOT) 37 U/L (5-34); Albumin 2.7 g/dL (3.4-4.8); Alkaline Phosphatase 175 U/L (40-110); Anion Gap 18 mmol/L (10-20); BUN (Urea Nitrogen) 99 mg/dL (9.8-20.1); Bilirubin, Total 0.6 mg/dL (0.2-1.2); Calc. Creatinine Clearance 0 mL/min (70-130); Calcium 7.8 mg/dL (7.8-10.44); Carbon Dioxide 14 mmol/L (23-31); Chloride 94 mmol/L (98-107); Estimated GFR 16; Globulin 3.4 g/dL (2.4-3.5); Glucose 101 mg/dL (83-110); Magnesium 2.2 mg/dL (1.6-2.6); Potassium 4.9 mmol/L (3.5-5.1); Protein, Total 6.1 g/dL (5.8-8.1); Sodium 121 mmol/L (136-145)
[2022-07-01 23:29] LABS: Bilirubin Neg (Negative); Blood, Urine 250 (Negative); Clarity Bloody (Clear); Glucose, Urine (Dipstick) Normal (Negative); Ketone, Urine 5 mg/dL (Negative); Leukocyte 500 (Negative); Nitrite Positive (Negative); Protein, Urine (Dipstick) 100 mg/dl (Neg-Trace); Urobilinogen Normal mg/dL (Less than 2)
[2022-07-01 23:39] LABS: Bacteria/HPF 2+ HPF (None Seen); Squamous Epithelial 0-3 HPF (0-3); WBC/HPF Greater than 50 HPF (0-3)
[2022-07-01 23:40] LABS: Yeast-Budding 2+ HPF (None Seen)
[2022-07-01 23:41] LABS: Yeast-Hyphae 1+ HPF (None Seen)
== END 2022-07-02 01:09 | disposition home or self-care (01) ==
LOC: CSHERS 22:04
DX: N30.00 Acute cystitis without hematuria (principal); K21.9 Gastro-esophageal reflux disease without esophagitis; E78.5 Hyperlipidemia, unspecified; E03.9 Hypothyroidism, unspecified; I12.9 Hypertensive chronic kidney disease with stage 1 through stage 4 chronic kidney disease, or unspecified chronic kidney disease; N18.9 Chronic kidney disease, unspecified
CPT/HCPCS: 36415; 71045; 80053; 81003; 81015; 83605; 83735; 83880; 84484; 85025; 87040; 87086; 93005; 96365; 96367; J0696; J3370

== ENCOUNTER → 2022-07-03 | Day surgery (SDC) | payer MEDICARE ==
[~2022-07-03] MED LIST changes: -FLU VACC QS2022-23(65YR UP)/PF 240 MCG/0.7 ML SYRINGE IM ONE
[2022-07-03 14:09] VITALS: BP 95/48; TEMP 98.7
== END ==
LOC: CSHULT 12:07
PROVIDERS: ATTEND Physician Assistant Medical
PROC: 0W9G3ZZ Drainage of Peritoneal Cavity, Percutaneous Approach (ICD-10-PCS; principal; 2022-07-03)
DX: R18.8 Other ascites (principal); Z88.5 Allergy status to narcotic agent
CPT/HCPCS: 49083